=== PATIENT | female | born 1965 | race Caucasian/White ===

== ENCOUNTER 2018-01-24 11:20 | Emergency (ER) | payer MEDICAID, SELFPAY ==
[2018-01-24 11:24] VITALS: BP 168/90; PULSE 109; RESP 18; TEMP 36.7; O2SAT 96
[2018-01-24] MEDS: MORPHine 10 MG/ML VIAL 4 MG IVP (13:41)
[2018-01-24] MEDS: HYDROmorphone 2 MG/ML VIAL 1 MG IVP ×2 (13:55→16:13)
--- NOTE | 2018-01-24 14:31 | W.ED.GENAD ---
Discharge Plan Disposition Patient Disposition: HOME Condition: Improving Discharge Details Chief Complaint: GenMedical Clinical Impression: Pain, rectal, Rectal spasm, External hemorrhoid Primary Care Provider: Bela Borden ED Provider: Kinza Dale Home Meds and New Rx's Prescriptions: New diazepam [Valium] 5 mg tablet 5 mg PO TID PRN (Reason: muscle spasm) Qty: 10 RF: 0 Continue FLEXERIL 5 MG tablet 5 mg PO Q8H PRN Qty: 90 RF: 6 levonorgestrel [Mirena] 1 EACH intrauterine device 1 ea Intrauterine ONCE Qty: 1 RF: 0 onabotulinumtoxinA [Botox] 100 UNIT recon soln 100 unit IJ every 3 months RF: 0 citalopram [Celexa] 20 MG tablet 40 mg PO DAILY RF: 0 VITAMIN D3 1,000 UNIT capsule 1,000 unit PO DAILY RF: 0 estradiol 1 MG tablet 1 mg PO DAILY Qty: 90 RF: 3 diazepam [Valium] 5 mg Tablet 1 tab PO PRN PRNRF: 0 acetaminophen [Tylenol] 325 MG tablet 325 mg PO Q4H PRN PRNRF: 0 No Action ibuprofen [IBU] 600 mg tablet 600 mg PO QID PRN (Reason: pain) Qty: 14 RF: 0 Discharge Instructions Instructions: Hemorrhoids (ED), Rectal Pain (ED) Additional Instructions: Usual nifedipine cream, lidocaine jelly, stool softeners as directed. Take the oxycodone and Valium as needed and directed for pain and muscle spasm, respectively. You should receive a call from Candis Harrison tomorrow regarding follow-up. Return to the emergency department if you develop any worsening or new concerning symptoms such as fever, increased pain, abdominal pain or any other concerns. Discharge Data Discharge Date/Time-TO BE ENTERED AT DEPARTURE: 01/24/18 16:28 Discharge Physician: Kinza Dale Medical Decision Making 52yo F with a history of chronic migraine, hemorrhoidectomy in 2013, and a Botox injection in the rectum for an anal fissure on January 16 at [facility] by Dr. Car who presents for significant rectal pain since last week. She was seen for follow-up in the general surgery clinic 3 days ago by nurse practitioner Candis Harrison who evaluated and noted an external hemorrhoid. Patient states prior to the Botox injection she had a scope which noted several internal hemorrhoids. She denies any rectal bleeding. Patient was given lidocaine cream, nifedipine cream, and Valium per Candis Harrison 3 days ago. Patient denies any relief with this. She denies fever, abdominal pain, rectal bleeding. She had a normal bowel movement today which was soft and denies any rectal bleeding. Blood pressure elevated which appears likely due to pain. There was significant delay in evaluating patient due to high number of patients and high acuity in ED. Patient was given a dose of morphine and Dilaudid prior to my evaluation after confirming no allergies. She was tachycardic on arrival but now has normal heart rate. She is afebrile. Her abdomen soft and nontender. Rectal exam notes a 1 cm nonthrombosed external hemorrhoid which is tender to palpation. She has no associated induration, fluctuance, cellulitis or evidence of abscess to the rectum. Within a few mm of digital rectal evaluation, patient has significant pain so aborted full digital rectal exam due to pain. Will call general surgery at [facility] to discuss any possible side effects after a Botox injection. At this point in time, I suspect patient's pain due to her external hemorrhoid or rectal pain after Botox injection. I do not see any evidence of abscess and she appears nontoxic and in no acute distress other than pain. 1440 --discussed with nurse practitioner Candis Harrison who evaluated patient Sunday in the general surgery clinic. She states she did see the hemorrhoid at that time which again did not appear thrombosed. States that patient can get rectal spasms after Botox injection from a fissure. States she may also developed the external hemorrhoid due to increased pressure from the Botox injection. Recommends continuing the nifedipine cream which helps with blood flow and spasms, continuing the lidocaine jelly, stool softeners and now will add narcotic pain medication. She will call patient at home tomorrow. 1545 --patient was informed of plan and feels good to go home. She is complaining of some return of pain so we will give another dose of Dilaudid. She was informed of plan for discharge and surgery will follow up with her tomorrow. HPI General Mode of arrival: ambulatory. Date/Time Provider Initiated Documentation: 01/24/18 11:46. Limitations to Documentation: no limitations. Information obtained by: patient. HPI Narrative: 52yo F with a history of chronic migraine, hemorrhoidectomy in 2013, and a Botox injection in the rectum for an anal fissure on January 16 at [facility] by Dr. Car who presents for significant rectal pain since last week. She was seen for follow-up in the general surgery clinic 3 days ago by nurse practitioner Candis Harrison who evaluated and noted an external hemorrhoid. Patient states prior to the Botox injection she had a scope which noted several internal hemorrhoids. Patient was given lidocaine cream, nifedipine cream, and Valium per Candis Harrison 3 days ago. Patient denies any relief with this. She denies fever, nausea, vomiting, abdominal pain, rectal bleeding. She had a normal bowel movement today which was soft and denies any rectal bleeding. Past medical history: Chronic migraines, Hemorrhoids, Perimenopausal Surgical history: L shoulder surgery, Carpal tunnel release, Hemorrhoidectomy (2013 - Dr. Jimenez) Social history: Rare ETOH, Former tobacco smoker. Denies drugs Meds: See list Allergies: NKDA PCP: Bela Borden Related Data Home Medications Medication Instructions Recorded Confirmed levonorgestrel [Mirena] 1 ea INTRAUTERINE ONCE #1 implant 05/03/15 01/24/18 citalopram [Celexa] 40 mg PO DAILY tab-cap 10/07/15 01/24/18 onabotulinumtoxinA [Botox] 100 unit IJ every 3 months vial 10/07/15 04/24/17 Vitamin D3 1,000 unit PO DAILY 10/21/15 01/24/18 estradiol 1 mg PO DAILY #90 tab-cap 10/09/16 01/24/18 acetaminophen [Tylenol] 325 mg PO Q4H PRN PRN tab 12/26/16 01/24/18 diazepam [Valium] 1 tab PO PRN PRN 01/24/18 01/24/18 diazepam [Valium] 5 mg PO TID PRN #10 tab 01/24/18 ibuprofen [IBU] 600 mg PO QID PRN #14 tab 01/27/18 Previous Rx's Medication Instructions Recorded acetaminophen [Tylenol] 325 mg PO Q4H PRN PRN tab 12/26/16 diazepam [Valium] 5 mg PO TID PRN #10 tab 01/24/18 ibuprofen [IBU] 600 mg PO QID PRN #14 tab 01/27/18 Allergies Allergy/AdvReac Type Severity Reaction Status Date / Time No Known Allergies Allergy Unverified 01/27/18 14:19 General Stated Complaint: GenMedical SHANIKA: 4 Review of Systems Review of Systems All systems reviewed & are unremarkable except as noted in HPI and below Constitutional Denies chills, Denies fever(s), Denies poor appetite, Denies weakness and Denies weight loss Cardiovascular Denies chest pain, Denies lightheadedness and Denies dyspnea Respiratory Denies dyspnea Gastrointestinal Denies abdominal pain, Denies melena, Denies hematochezia, Denies tenesmus, Denies change in stool character, Denies diarrhea, Denies nausea and Denies vomiting Neurologic Denies weakness PFSH Family History Mother Diabetes Heart disease Father No problems noted. Other Personal history of malignant neoplasm Medical History Bleeding external hemorrhoids Chronic migraine Internal hemorrhoids Premenopausal menorrhagia Social History Smoking/Tobacco Use Status: Former Tobacco Use Surgical History Colonoscopy - IV Sedation L shoulder surgery Exam Const General: cooperative, healthy appearing and acute distress (appears uncomfortable, laying on her R side with ice pack in center of buttocks, pt is crying ) moderate Orientation: alert, awake and oriented x3 HENMT Head: normal to inspection Ears: hearing grossly normal bilaterally General nose exam: external nose normal Face and sinus: normal facial exam Mouth: oral mucosae normal Eyes General: appearance normal, both eyes and all related structures Eyelids: eyelids normal EOM: EOM intact bilaterally Neck Neck: normal visual inspection Lymphatic: no lymphadenopathy noted Chest Chest: normal inspection of the chest Resp Effort & Inspection: normal respiratory effort and able to speak in complete sentences Auscultation: clear to auscultation bilaterally Cardio Rate: regular rate Rhythm: regular rhythm GI Inspection: normal to inspection Palpation: soft, not firm, no guarding, no hepatosplenomegaly, no masses and nontender Auscultation: normal bowel sounds Rectal Exam - female: normal sphincter tone and other (An approximately 1 cm nonthrombosed pink colored hemorrhoid w/o erythema, fluctuance, induration of immediate or surrounding areas. No red streaking, fissures, masses, bleeding or discharge noted. ) Back/Spine/Pelvis Back: no CVA tenderness Skin General skin exam: no rashes or lesions noted Neuro General: alert and awake Cognition: normal cognition Speech: speech normal Gait: normal gait Motor: muscle tone normal throughout Sensory Exam: no sensory deficits noted Extrem General: normal to inspection, full ROM and normal capillary refill Psych Appearance: grossly normal Mental Status: mental status grossly normal Speech and Movement: speech and movement normal Affect: normal affect Thought Process: normal Course Vital Signs Temperature 98.1 F 01/24/18 11:24 Pulse 109 H 01/24/18 11:24 Respiratory Rate 18 01/24/18 11:24 Blood Pressure 168/90 H 01/24/18 11:24 Pulse Oximetry 96 01/24/18 11:24 Temperature 98.1 F 01/24/18 11:24 Temperature Source Temporal Artery Scan 01/24/18 11:24 Pulse 109 H 01/24/18 11:24 Respiratory Rate 18 01/24/18 11:24 Blood Pressure 168/90 H 01/24/18 11:24 Pulse Oximetry 96 01/24/18 11:24 Oxygen Delivery Method Room Air 01/24/18 11:24 Oxygen Flow Rate 0 01/24/18 11:24 Pain Level 10 01/24/18 13:41
[2018-01-24] MEDS: Diazepam 5 MG TAB PO (14:37)
[2018-01-24 15:42] VITALS: BP 153/84; PULSE 74; RESP 17; TEMP 36.9; O2SAT 96
[2018-01-24 16:19] VITALS: BP 153/84; PULSE 74; RESP 17; TEMP 36.9; O2SAT 96
== END 2018-01-24 16:28 | disposition home or self-care (01) ==
PROVIDERS: Emergency Provider Physician Assistant; PCP Nurse Practitioner Family
DX: K59.4 Anal spasm (principal); K64.4 Residual hemorrhoidal skin tags; K68.9 Other disorders of retroperitoneum; T48.295A Adverse effect of other drugs acting on muscles, initial encounter
CPT/HCPCS: 96374; 96375; 96376; 99284; J2270

== ENCOUNTER 2018-01-27 13:49 | Emergency (ER) | payer MEDICAID, SELFPAY ==
[2018-01-27 14:14] VITALS: BP 135/83; PULSE 90; RESP 20; TEMP 36.7; O2SAT 97
[2018-01-27 15:20] VITALS: RESP 18
[2018-01-27] MEDS: Ketorolac 30 MG/ML VIAL IVP (16:12)
[2018-01-27 16:33] VITALS: BP 135/80; PULSE 88; RESP 18; TEMP 36.8; O2SAT 99
--- NOTE | 2018-01-27 16:48 | ED.GENADUL_ITS ---
Discharge Plan Disposition Patient Disposition: HOME Condition: Stable Discharge Details Chief Complaint: GenMedical Clinical Impression: Hemorrhoids, Anal or rectal pain Primary Care Provider: Bela Borden ED Provider: Bo Metzger Home Meds and New Rx's Prescriptions: New ibuprofen [IBU] 600 mg tablet 600 mg PO QID PRN (Reason: pain) Qty: 14 RF: 0 Continue FLEXERIL 5 MG tablet 5 mg PO Q8H PRN Qty: 90 RF: 6 levonorgestrel [Mirena] 1 EACH intrauterine device 1 ea Intrauterine ONCE Qty: 1 RF: 0 onabotulinumtoxinA [Botox] 100 UNIT recon soln 100 unit IJ every 3 months RF: 0 citalopram [Celexa] 20 MG tablet 40 mg PO DAILY RF: 0 VITAMIN D3 1,000 UNIT capsule 1,000 unit PO DAILY RF: 0 estradiol 1 MG tablet 1 mg PO DAILY Qty: 90 RF: 3 diazepam [Valium] 5 mg Tablet 1 tab PO PRN PRNRF: 0 diazepam [Valium] 5 mg tablet 5 mg PO TID PRN (Reason: muscle spasm) Qty: 10 RF: 0 acetaminophen [Tylenol] 325 MG tablet 325 mg PO Q4H PRN PRNRF: 0 Discontinued oxycodone 5 mg tablet 5 mg PO Q6H PRN (Reason: pain) Qty: 14 RF: 0 OxyCODONE [Roxicodone Prepack] 5 MG Tab 5 mg PO Q6H PRNQty: 12 RF: 0 Discharge Instructions Instructions: Hemorrhoids (ED) Additional Instructions: Feel free to return to the emergency department as needed for reassessment otherwise you should call colorectal surgery's office first thing tomorrow morning and speak with Candis for arrangement of close follow-up appoint. Otherwise continue to take your medications as prescribed. Referrals: Bela Borden [Primary Care Provider] - (As needed for reassessment) Discharge Data Discharge Date/Time-TO BE ENTERED AT DEPARTURE: 01/27/18 17:40 Medical Decision Making Patient presenting to the emergency department for chief complaint of rectal pain and discomfort. She states that she has had this problem intermittently for the last 5 years and recently was seen by [facility] colorectal specialist and injected with Botox. She states that the Botox did not help her discomfort and she has had continued amount of pain. Patient denies any fever chills, nausea vomiting diarrhea, normal bowel movements, and denies any other medical complaints. Physical exam does show some external hemorrhoids but severely tender with any palpation so there was none ability to do any internal examination. Given that patient was seen by colorectal surgery I did call [facility] and speak with Dr. Car whom stated that he did not recommend any CT imaging or diagnostics at this time and that patient has continued to complain of this pain for a while that he sees no organic source to her discomfort. He did recommended that she call the office tomorrow morning for follow-up appointment with his nurse practitioner which she is seen in the past and that patient may need referral to pain specialist. He did also recommend that patient be prescribed pain medication to get her through this evening otherwise to use her normally prescribed medications. I agree with this plan of care and informed patient of the recommendations which she stated no further needs questions or concerns and stated agreement with plan of care. Medical Records Medical records reviewed: Yes I reviewed the patient's medical records. HPI General Mode of arrival: ambulatory . Date/Time Provider Initiated Documentation: 01/27/18 14:34 . Limitations to Documentation: no limitations . Information obtained by: patient . History of Present Illness 52 year old F presents to the emergency department with the chief complaint of Rectal pain, described as severe and similar to prior episodes, with intensity rated at 10. Quality is described as aching and sharp, and is localized to the buttocks (Right). Patient reports no radiation. Patient started experiencing this year(s) (5) and it has been intermittent. No relieving factors improve symptom(s), No exacerbating factors reported . Patient notes no other symptoms.. Patient did receive the following treatments prior to arrival, none Related Data Home Medications Medication Instructions Recorded Confirmed levonorgestrel [Mirena] 1 ea INTRAUTERINE ONCE #1 implant 05/03/15 01/24/18 citalopram [Celexa] 40 mg PO DAILY tab-cap 10/07/15 01/24/18 onabotulinumtoxinA [Botox] 100 unit IJ every 3 months vial 10/07/15 04/24/17 Vitamin D3 1,000 unit PO DAILY 10/21/15 01/24/18 estradiol 1 mg PO DAILY #90 tab-cap 10/09/16 01/24/18 acetaminophen [Tylenol] 325 mg PO Q4H PRN PRN tab 12/26/16 01/24/18 diazepam [Valium] 1 tab PO PRN PRN 01/24/18 01/24/18 diazepam [Valium] 5 mg PO TID PRN #10 tab 01/24/18 ibuprofen [IBU] 600 mg PO QID PRN #14 tab 01/27/18 Previous Rx's Medication Instructions Recorded acetaminophen [Tylenol] 325 mg PO Q4H PRN PRN tab 12/26/16 diazepam [Valium] 5 mg PO TID PRN #10 tab 01/24/18 ibuprofen [IBU] 600 mg PO QID PRN #14 tab 01/27/18 Allergies Allergy/AdvReac Type Severity Reaction Status Date / Time No Known Allergies Allergy Unverified 01/27/18 14:19 General Stated Complaint: GenMedical SHANIKA: 3 Review of Systems Constitutional Denies body ache(s), Denies chills and Denies fever(s) Cardiovascular Denies chest pain and Denies dyspnea Respiratory Denies dyspnea Gastrointestinal Reports as per HPI, Denies abdominal pain, Denies nausea and Denies vomiting Genitourinary Denies urinary frequency, Denies difficulty voiding and Denies vaginal discharge Integumentary/Breasts Denies rash Neurologic Denies confusion and Denies sensory deficit Psychiatric Denies confusion PFSH Family History Mother Diabetes Heart disease Father No problems noted. Other Personal history of malignant neoplasm Medical History Bleeding external hemorrhoids Chronic migraine Internal hemorrhoids Premenopausal menorrhagia Social History Smoking/Tobacco Use Status: Former Tobacco Use Surgical History Colonoscopy - IV Sedation L shoulder surgery Exam Const General: cooperative, no acute distress and not ill appearing Orientation: alert, awake and oriented x3 HENMT Mouth: moist mucous membranes Resp Effort & Inspection: normal respiratory effort, able to speak in complete sentences and no respiratory distress Cardio Rate: regular rate Rhythm: regular rhythm GI Inspection: normal to inspection Palpation: soft, no hepatosplenomegaly, not firm, no guarding and no hepatomegaly Rectal Exam - female: normal sphincter tone, No fissure, hemorrhoids (external ) , No laceration, No lesions and tenderness Skin General skin exam: no rashes or lesions noted Neuro General: alert, awake, oriented x3, moves all extremities and no focal motor deficits Sensory Exam: no sensory deficits noted Course Vital Signs Temperature 36.7 C 01/27/18 14:14 Pulse 90 01/27/18 14:14 Respiratory Rate 20 01/27/18 14:14 Blood Pressure 135/83 01/27/18 14:14 Pulse Oximetry 97 01/27/18 14:14 Temperature 36.8 C 01/27/18 16:33 Temperature Source Temporal Artery Scan 01/27/18 16:33 Pulse 88 01/27/18 16:33 Respiratory Rate 18 01/27/18 16:33 Respiratory Effort 01/27/18 15:20 Respiratory Depth Normal 01/27/18 15:20 Respiratory Pattern Normal 01/27/18 15:20 Blood Pressure 135/80 01/27/18 16:33 Blood Pressure Position Sitting 01/27/18 14:14 Pulse Oximetry 99 01/27/18 16:33 Oxygen Delivery Method Room Air 01/27/18 16:33 Oxygen Flow Rate 0 01/27/18 16:33 Pain Level 9 01/27/18 14:14
[2018-01-27 17:06] VITALS: BP 120/89; PULSE 89; RESP 16; TEMP 37.1; O2SAT 96
[2018-01-27] MEDS: HYDROcodone 5/Acetaminophen 325 TAB PO (17:33)
== END 2018-01-27 17:40 | disposition home or self-care (01) ==
PROVIDERS: Emergency Provider Nurse Practitioner Family; PCP Nurse Practitioner Family
DX: K64.4 Residual hemorrhoidal skin tags (principal); K62.89 Other specified diseases of anus and rectum
CPT/HCPCS: 96374; 99284; J1885

== ENCOUNTER 2018-05-07 07:44 | Day surgery (SDC) | payer MEDICAID, SELFPAY ==
[2018-05-07 07:56] VITALS: BP 139/85; PULSE 85; RESP 16; TEMP 37.2; O2SAT 96
[2018-05-07] MEDS: Lactated Ringers 1,000 ML 80 ML IV (08:13)
--- NOTE | 2018-05-07 09:09 | W.COLOREPORT ---
Date of service: 05/07/18 Time of Service: 09:28 Colonoscopy Report Date of procedure: 05/07/18 Pre-op diagnosis general: Family History/Colon Cancer screening Post-op diagnosis procedure note: same Procedure: Colonoscopy Surgeon: Divya Jimenez Anesthesia proc note operative: MAC (Asha Mccabe, BILLIE/ ASA 2) Estimated blood loss (mL): 0 Pathology: none sent Complications: None Disposition: same day Indications: Mrs. Lynn is a pleasant 52 year old female who was seen in the office for a follow-up colonoscopy. She has a family history of colon cancer. Her last colonoscopy was 2012 and was normal. Risks, benefits and complications have been reviewed. Complications include but are not limited to bleeding, pain, perforation, missed small lesion/polyp, sore throat, aspiration and adverse reaction to the medications. Questions were entertained and answered to their satisfaction and they wished to proceed. No guarantees were given or implied. Prep: Miralax/Dulcolax Procedure Start Time: :28 Procedure End Time: :46 Retraction Time: 9 minutes Findings: Normal Colon Procedure Description: After informed consent was obtained the patient was taken to the procedure room and placed in a left decubitous position. Monitors were applied and a time out was done. The patients name, date of , procedure, allergies to medications and metal in their body was reviewed. The patient was then sedated. Once sedated and comfortable a rectal exam was done. External exam was normal. Internal exam revealed a normal sphincter tone and no palpable masses. The scope was then introduced and retro-flexed. No internal hemorrhoids were identified. The scope was then advanced to the cecum without difficulty. The TI and appendiceal orifice were identified. The prep was adequate. The scope was then slowly retracted over 9 minutes back into the rectum. No polyps were identified. The scope was removed and the patient was woken up and taken back to Same day surgery in stable condition. The patient tolerated the procedure well and there were no immediate complications. Follow up: The patient should follow up in 5 years unless they develop changes in bowel habits or other new gastrointestinal complaints.
--- NOTE | 2018-05-07 09:11 | W.PM.DSUDISC ---
Discharge Plan Disposition Patient Disposition: HOME Condition: Good Discharge Details Reason For Visit: Screening Attending Provider: Divya Jimenez Primary Care Provider: Bela Borden Home Meds and New Rx's Prescriptions: Continued cyclobenzaprine 10 mg tablet 10 mg PO HS RF: 0 docusate sodium 100 mg capsule 100 mg PO BID PRNRF: 0 Mirena 1 EACH intrauterine device 1 ea Intrauterine ONCE Qty: 1 RF: 0 Botox 100 UNIT recon soln 100 unit IJ every 3 months RF: 0 citalopram [Celexa] 20 MG tablet 40 mg PO DAILY RF: 0 VITAMIN D3 1,000 UNIT capsule 1,000 unit PO DAILY RF: 0 estradiol 1 MG tablet 1 mg PO DAILY Qty: 90 RF: 3 acetaminophen [Tylenol] 325 MG tablet 325 mg PO Q4H PRN PRNRF: 0 ibuprofen [IBU] 600 mg tablet 600 mg PO QID PRN (Reason: pain) Qty: 14 RF: 0 Discontinued polyethylene glycol 3350 17 gram powder in packet 255 g PO DAILY Qty: 15 RF: 0 bisacodyl [Dulcolax (bisacodyl)] 5 mg tablet,delayed release (DR/EC) 5 mg PO ONCE Qty: 4 RF: 0 Discharge Instructions Instructions: Colonoscopy (DC) Additional Instructions: Findings: Normal Colon Follow up:5 years Please call if you develop: fevers >101.5 Nausea or Vomiting Abdominal pain that is not transient DAY SURGERY UNIT POST COLONOSCOPY INSTRUCTIONS 1. Because there will be medication in your system for the next 24 hours, you may feel a little sleepy. Your coordination will be affected. Therefore: a. Do not drive or operate dangerous equipment for 24 hours. b. Do not drink alcohol beverages for 24 hours (not even beer). c. Plan to go home and rest for the day. 2. Generally there are no restrictions on your activity after a day or so has gone by, but you may feel a bit fatigued for a few days. 3 After you arrive home you may have a light meal and return to a normal diet as you can tolerate it without feeling sick to your stomach. 4. After surgery, you may feel pain or discomfort. This should be only transient, but if it persists please contact your doctor. 5. If there are any questions regarding the findings of your procedure, please feel free to contact your doctor. 6. If you are unable to contact your doctor with a problem, contact the hospital at [phone]. 9. Continue all your regular medications unless directed otherwise. I understand the above instructions and have no questions. Signature of Patient or Responsible Adult Escort Date/Time Name of Responsible Adult Escort Signature of Nurse Date/Time Activity:: Activity as Tolerated Diet:: As Tolerated Discharge Orders Discharge Orders: Discharge Order (Routine); Ordered 05/07/18 Ordered By: Divya Jimenez DS: Diagnosis Discharge Diagnosis (1) S/P colonoscopy: Status: Acute (2) Family history of colon cancer: Status: Acute
[2018-05-07 10:13] VITALS: BP 147/98; PULSE 65; RESP 18; O2SAT 100
[2018-05-07 10:37] VITALS: BP 144/87; PULSE 67; RESP 16; TEMP 36.2; O2SAT 98
== END 2018-05-07 10:54 | disposition home or self-care (01) ==
PROVIDERS: PCP Nurse Practitioner Family; Visit Provider Surgery
PROC: 0DJD8ZZ Inspection of Lower Intestinal Tract, Via Natural or Artificial Opening Endoscopic (ICD-10-PCS; CPT 45378; principal; 2018-05-07 09:15)
DX: Z12.11 Encounter for screening for malignant neoplasm of colon (principal)
CPT/HCPCS: 45378; J2405

== ENCOUNTER 2018-05-24 08:46 | Emergency (ER) | payer MEDICAID, SELFPAY ==
[2018-05-24] VITALS (71 sets, daily range): BP systolic 116–155; BP diastolic 69–92; PULSE 71–96; RESP 12–30; TEMP 37; O2SAT 88–99
--- NOTE | 2018-05-24 08:54 | DI.RAD_ITS ---
SYMPTOMS/DIAGNOSIS: CHEST PAIN, ? ACUTE DISEASE PA AND LATERAL CHEST: Comparison is 02/12/15. The heart size and pulmonary vasculature are within normal limits. No focal consolidating infiltrates, effusions or pneumothoraces are identified. There are degenerative changes in the spine. IMPRESSION: No acute pulmonary process.
[2018-05-24 09:11] LABS: Abs Immature Grans 0.06 k/cumm (0.0-0.09); Absolute Eosinophil Count 0.04 k/cumm (0.0-0.7); Absolute Lymphocyte Count 4.31 k/cumm (1.2-3.4); Absolute Monocyte Count 0.69 k/cumm (0.11-0.7); Absolute Neutrophil Count 6.81 k/cumm (1.2-6.7); Basophils % 0.3; Eosinophils % 0.3; HCT 44.2 % (36.0-46.0); HGB 14.9 g/dL (12.0-15.5); Immature Grans % 0.5; Lymphocytes % 36.1; Mean Corp. HGB Concentration 33.7 g/dL (32.0-36.0); Mean Corpuscular Hemoglobin 30.2 pg (27.0-33.0); Mean Corpuscular Volume 89.7 fL (80-95); Monocytes % 5.8; Platelet Count 269 x1000/uL (130-400); RBC 4.93 m/cumm (4.00-5.20); RBC Distribution Width 12.9 % (11.7-14.6); White Blood Cell Count 11.94 k/cumm (4.4-10.8)
[2018-05-24 09:12] LABS: Absolute Basophil Count 0.04 k/cumm (0.0-0.2)
--- NOTE | 2018-05-24 09:16 | ED.GENADUL_ITS ---
Discharge Plan Disposition Patient Disposition: HOME Condition: Improving Discharge Details Chief Complaint: Chest Pain Clinical Impression: Atypical chest pain, Anxiety, Other social stressor, Chest wall pain Primary Care Provider: Bela Borden ED Provider: Kinza Dale Home Meds and New Rx's Prescriptions: Continued docusate sodium 100 mg capsule 100 mg PO BID PRNRF: 0 Mirena 1 EACH intrauterine device 1 ea Intrauterine ONCE Qty: 1 RF: 0 Botox 100 UNIT recon soln 100 unit IJ every 3 months RF: 0 citalopram [Celexa] 20 MG tablet 40 mg PO DAILY RF: 0 VITAMIN D3 1,000 UNIT capsule 1,000 unit PO DAILY RF: 0 estradiol 1 MG tablet 1 mg PO DAILY Qty: 90 RF: 3 acetaminophen [Tylenol] 325 MG tablet 325 mg PO Q4H PRN PRNRF: 0 ibuprofen [IBU] 600 mg tablet 600 mg PO QID PRN (Reason: pain) Qty: 14 RF: 0 Discharge Instructions Instructions: Anxiety (ED), Chest Wall Pain (ED) Additional Instructions: Call your primary care doctor today to schedule follow-up appointment for reevaluation. Take the Ativan as needed and directed for any further feelings of anxiety or to help with relaxation or sleep. Follow-up with your scheduled stress test on Sunday at 2pm. Return immediately to the emergency department any worsening or new concerning symptoms. Discharge Data Discharge Date/Time-TO BE ENTERED AT DEPARTURE: 05/24/18 14:03 Discharge Physician: Kinza Dale Medical Decision Making 52-year-old female with a history of depression and migraine who presents with substernal sharp and pressure-like chest pain when getting out of bed this morning associated with fatigue and weakness with radiation to her back. Denies SOB or dizziness. Triage note stated that patient collapsed in bathroom. Patient states this did not happen, but rather she stood up out of bed and felt fatigue and weakness and chest pain and laid down on the floor and then climbed back into her bed. She denies any syncopal episode. No complaint of tearing chest pains so history not c/w dissection. No DVT/PE risk factors, no tachycardia/hypoxia, wells score low, and history/exam not c/w PE. Patient appears tearful, anxious and crying throughout exam. She stated she recently lost her job. She also has not been on her Celexa since a colonoscopy 2 weeks ago. She also developed shingles after her colonoscopy 2 weeks ago and has been uncomfortable with right-sided facial neuropathic pain. Her EKG on arrival appears unremarkable. Due to recent stressors and patient presentation of appearing anxious and tearful, anxiety may be a factor. Also her chest is tender is significantly tender to palpation so this may be musculoskeletal as well. Labs ordered on arrival unremarkable. Heart score of 1 which is low risk for cardiac event. Will give a dose of Toradol, Ativan and check a second troponin and reassess. 1330 --second troponin negative. Patient is feeling much better and requesting to go home. She was offered admission but declines. An outpatient stress test was ordered for May 27 at 2 PM. She is requesting a few tabs of Ativan to go. Patient advised to restart her Celexa. Patient instructed to follow-up with primary care doctor and return here at any time if worse. Medical Records Medical records reviewed: Yes I reviewed the patient's medical records. Lab Data Lab results reviewed: Yes I reviewed the patient's lab results. Laboratory Tests Range/Units 05/24/18 05/24/18 05/24/18 09:00 09:00 12:58 WBC (4.4-10.8) k/cumm 11.94 H RBC (4.00-5.20) m/cumm 4.93 Hgb (12.0-15.5) g/dL 14.9 Hct (36.0-46.0) % 44.2 MCV (80-95) fL 89.7 MCH (27.0-33.0) pg 30.2 MCHC (32.0-36.0) g/dL 33.7 RDW (11.7-14.6) % 12.9 Plt Count (130-400) x1000/uL 269 MPV (8.0-11.0) fL 9.0 Immature Gran % 0.5 Neutrophils % 57.0 Lymphocytes % 36.1 Monocytes % 5.8 Eosinophils % 0.3 Basophils % 0.3 Absolute Neutrophils (1.2-6.7) k/cumm 6.81 H Absolute Lymphocytes (1.2-3.4) k/cumm 4.31 H Absolute Monocytes (0.11-0.7) k/cumm 0.69 Absolute Eosinophils (0.0-0.7) k/cumm 0.04 Absolute Basophils (0.0-0.2) k/cumm 0.04 Sodium (136-145) mmol/L 142 Potassium (3.5-5.1) mmol/L 4.2 Chloride (98-107) mmol/L 104 Carbon Dioxide (21.0-32.0) mmol/L 24.9 Anion Gap (3-11) mmol/L 13.1 H BUN (7-18) mg/dL 17 Creatinine (0.55-1.02) mg/dL 0.77 Estimated GFR/1.73 m2 (mL/min/1.73m2) >= 60.00 Glucose (70-100) mg/dL 105 H Calcium (8.5-10.1) mg/dL 9.3 Magnesium (1.8-2.4) mg/dL 2.0 Total Bilirubin (0.2-1.0) mg/dL 0.3 AST (15-37) U/L 15 ALT (12-78) U/L 30 Alkaline Phosphatase (46-116) U/L 85 Troponin I (0.00-0.06) ng/mL < 0.02 < 0.02 Total Protein (6.4-8.2) g/dL 7.3 Albumin (3.4-5.0) g/dL 3.6 ECG Data Attestation: I personally reviewed and interpreted this ECG (s) as follows: Interpretation: 0853 -- 96, sinus, no acute ST elevation or depression, T wave inversion in lead III, QTc 440, QRS 82. HPI General Mode of arrival: ambulatory . Date/Time Provider Initiated Documentation: 05/24/18 08:47 . Limitations to Documentation: no limitations . Information obtained by: patient . HPI Narrative: Pt is a 52yo F with a history of depression, migraines who presents with chest pain since this morning. Patient states she stood up to get out of bed and felt generally weak and fatigued and developed substernal sharp and pressure-like chest pain. States it radiated straight through to her back. She denies any tearing chest pain. States the pain currently is 10/10. She admits to some nausea and vomiting 4 times since then but denies any shortness of breath or dizziness. Patient states she had been feeling generally weak for the past month since being diagnosed and treated for shingles with antivirals, steroids and tramadol. She states she has had persistent right facial pain at the site of her shingles but states the rash is improved. She denied any relief with tramadol before. Dorina darby states she was diagnosed with shingles immediately after a colonoscopy on May 07. She states she had stopped all of her medication prior to colonoscopy and is not taking them since then due to her feelings of general fatigue and not feeling well. She denies any fever, cough, recent surgery, recent travel or leg pain or swelling. Related Data Home Medications Medication Instructions Recorded Confirmed Mirena 1 ea INTRAUTERINE ONCE #1 implant 05/03/15 05/24/18 Botox 100 unit IJ every 3 months vial 10/07/15 05/24/18 citalopram [Celexa] 40 mg PO DAILY tab-cap 10/07/15 05/24/18 Vitamin D3 1,000 unit PO DAILY 10/21/15 05/24/18 estradiol 1 mg PO DAILY #90 tab-cap 10/09/16 05/24/18 acetaminophen [Tylenol] 325 mg PO Q4H PRN PRN tab 12/26/16 05/24/18 ibuprofen [IBU] 600 mg PO QID PRN #14 tab 01/27/18 05/24/18 docusate sodium 100 mg capsule 100 mg PO BID PRN 04/15/18 05/24/18 Previous Rx's Medication Instructions Recorded acetaminophen [Tylenol] 325 mg PO Q4H PRN PRN tab 12/26/16 ibuprofen [IBU] 600 mg PO QID PRN #14 tab 01/27/18 Allergies Allergy/AdvReac Type Severity Reaction Status Date / Time No Known Allergies Allergy Verified 05/24/18 09:23 General Stated Complaint: Chest Pain SHANIKA: 2 Review of Systems Review of Systems All systems reviewed & are unremarkable except as noted in HPI and below Constitutional Reports as per HPI, Denies chills and Denies fever(s) Eyes Denies blurry vision ENT Denies dizziness, Denies sore throat and Denies throat swelling Cardiovascular Reports chest pain and Denies dyspnea Respiratory Denies dyspnea Gastrointestinal Denies abdominal pain, Denies diarrhea and Reports vomiting Genitourinary Denies hematuria and Denies dysuria Musculoskeletal Denies back pain and Denies numbness Integumentary/Breasts Denies lesions and Denies rash Neurologic Denies dizziness and Denies numbness Allergic/Immunologic Denies throat swelling [facility] Medical History Family history of colon cancer (Acute) Chronic anal fissure (Acute) Bleeding external hemorrhoids Chronic migraine Internal hemorrhoids Premenopausal menorrhagia Surgical History S/P colonoscopy (Acute ~05/07/18) S/P Botox injection (Acute) Colonoscopy - IV Sedation (~2012) L shoulder surgery Family History Mother Diabetes Heart disease Colon polyps Other Personal history of malignant neoplasm Sister Colon polyps Social History Smoking/Tobacco Use Status: Former Tobacco Use alcohol intake: current alcohol intake frequency: holidays/special occasions only substance use type: marijuana Exam Const General: cooperative, healthy appearing and other (crying, tearful and anxious throughout exam) Orientation: alert, awake and oriented x3 HENMT Head: normal to inspection Face and sinus: normal facial exam Eyes General: appearance normal, both eyes and all related structures EOM: EOM intact bilaterally Neck Neck: normal visual inspection and No submandibular swelling Lymphatic: no lymphadenopathy noted Chest Chest: normal inspection of the chest and tenderness Chest/axillae images: 1. significant tenderness to palpation of substernal chest. No evidence of rash or injury Resp Effort & Inspection: normal respiratory effort and able to speak in complete sentences Auscultation: clear to auscultation bilaterally Cardio Rate: regular rate Rhythm: regular rhythm GI Inspection: normal to inspection Palpation: soft, not firm, not rigid and nontender Auscultation: normal bowel sounds Skin General skin exam: no rashes or lesions noted Neuro General: alert, awake and oriented x3 Cognition: normal cognition Speech: speech normal Motor: muscle tone normal throughout Sensory Exam: no sensory deficits noted Extrem General: normal to inspection, full ROM and no edema Psych Appearance: grossly normal Mental Status: mental status grossly normal Speech and Movement: speech and movement normal Affect: normal affect Course Vital Signs Temperature 98.6 F 05/24/18 08:52 Pulse 91 H 05/24/18 08:52 Respiratory Rate 22 05/24/18 08:52 Blood Pressure 155/92 H 05/24/18 08:52 Pulse Oximetry 98 05/24/18 08:52 Temperature 98.6 F 05/24/18 08:52 Temperature Source Temporal Artery Scan 05/24/18 08:52 Pulse 91 H 05/24/18 08:52 Respiratory Rate 22 05/24/18 08:52 Respiratory Effort Non-Labored 05/24/18 08:54 Blood Pressure 155/92 H 05/24/18 08:52 Blood Pressure Position Sitting 05/24/18 08:52 Pulse Oximetry 98 05/24/18 08:52 Oxygen Delivery Method Room Air 05/24/18 08:52 Oxygen Flow Rate 0 05/24/18 08:52 Pain Level 10 05/24/18 08:52 Comment 05/24/18 08:52 Lab/Test Results Lab/Test Results: Laboratory Tests Range/Units 05/24/18 09:00 WBC (4.4-10.8) k/cumm 11.94 H RBC (4.00-5.20) m/cumm 4.93 Hgb (12.0-15.5) g/dL 14.9 Hct (36.0-46.0) % 44.2 MCV (80-95) fL 89.7 MCH (27.0-33.0) pg 30.2 MCHC (32.0-36.0) g/dL 33.7 RDW (11.7-14.6) % 12.9 Plt Count (130-400) x1000/uL 269 MPV (8.0-11.0) fL 9.0 Immature Gran % 0.5 Neutrophils % 57.0 Lymphocytes % 36.1 Monocytes % 5.8 Eosinophils % 0.3 Basophils % 0.3 Absolute Neutrophils (1.2-6.7) k/cumm 6.81 H Absolute Lymphocytes (1.2-3.4) k/cumm 4.31 H Absolute Monocytes (0.11-0.7) k/cumm 0.69 Absolute Eosinophils (0.0-0.7) k/cumm 0.04 Absolute Basophils (0.0-0.2) k/cumm 0.04
[2018-05-24 09:26] LABS: ALT 30 U/L (12-78); AST 15 U/L (15-37); Albumin 3.6 g/dL (3.4-5.0); Alkaline Phosphatase 85 U/L (46-116); Anion Gap 13.1 mmol/L (3-11); BUN 17 mg/dL (7-18); Bilirubin, Total 0.3 mg/dL (0.2-1.0); CO2 24.9 mmol/L (21.0-32.0); CREATININE 0.77 mg/dL (0.55-1.02); Calcium 9.3 mg/dL (8.5-10.1); Chloride 104 mmol/L (98-107); Glucose 105 mg/dL (70-100); Potassium 4.2 mmol/L (3.5-5.1); Sodium 142 mmol/L (136-145); Total Protein 7.3 g/dL (6.4-8.2); Troponin I < 0.02 ng/mL (0.00-0.06)
[2018-05-24] MEDS: Ketorolac 30 MG/ML VIAL IVP (11:23)
[2018-05-24] MEDS: LORazepam 2 MG/ML VIAL 0.5 MG IVP (11:31)
--- NOTE | 2018-05-24 11:33 | NUR.NOTE ---
patient medicated per MD order, POC 4 hour troponin Nursing Note:
[2018-05-24 13:16] LABS: Troponin I < 0.02 ng/mL (0.00-0.06)
--- NOTE | 2018-05-24 14:02 | NUR.NOTE ---
IV dc'd. patient to be discharged home Nursing Note:
[2018-05-24] MEDS: LORazepam 0.5 MG TAB PO (14:10)
== END 2018-05-24 14:03 | disposition home or self-care (01) ==
PROVIDERS: Emergency Provider Physician Assistant; PCP Nurse Practitioner Family
DX: R07.89 Other chest pain (principal); F41.9 Anxiety disorder, unspecified; T43.226A Underdosing of selective serotonin reuptake inhibitors, initial encounter; Z91.14 Patient's other noncompliance with medication regimen; Z56.89 Other problems related to employment; R11.2 Nausea with vomiting, unspecified; B02.9 Zoster without complications
CPT/HCPCS: 36415; 80053; 93005; 96374; 96375; 99285; 71046; 83735; 84484; 85025; 93010; J1885; J2060

== ENCOUNTER 2018-05-27 00:08 | Outpatient (CLI) | payer MEDICAID, SELFPAY ==
--- NOTE | 2018-05-27 14:00 | ETT_ITS ---
*[facility]* *[facility]* [address] [place] [address] Stress Electrocardiography Shaji protocol Date of study: 05/27/2018 *PATIENT PRESENTATION* Height: 157.5cm (62in) Blood Pressure: Weight: 81.8kg (180lb) BSA: 1.93m^2 Referring physician: Kinza Dale Ordering physician: Kinza Dale Impressions: Normal study after maximal exercise. Summary: 1. Stress ECG conclusions: The stress ECG is negative. Martinez treadmill score: 5. This score predicts a low risk of cardiac events. 2. Stress: The target heart rate was achieved. The heart rate response to stress is normal. There is a normal resting blood pressure with an appropriate response to stress. The patient experienced no chest pain during stress. Exercise capacity is normal for age. Indication: R07.9. History: REASON FOR TESTING: PATIENT PRESENTED TO THE ED ON 05/24/18 FOR SHARP SUBSTERNAL CHEST PAIN/PRESSURE WITH RADIATION TO HER BACK ASSOCIATED WITH FATIGUE, WEAKNESS, NAUSEA AND VOMITING. TROPONINS IN ED WERE NEGATIVE. DENIES CHEST PAIN/PRESSURE UPON ARRIVAL FOR STRESS TEST TODAY ALTHOUGH SHE REPORTS MIDSTERNAL CHEST WALL SORENESS. SIGNIFICANT PAST MEDICAL HISTORY: ANXIETY AND DEPRESSION. SMOKING STATUS: QUIT 1990. 10 YEAR PPD HISTORY. EXERCISE ROUTINE: NO DAILY EXERCISE ROUTINE. Risk factors: Obesity. Dyslipidemia. Cholesterol: 222mg/dl. HDL: 56mg/dl. LDL: 152mg/dl. Triglycerides: 120mg/dl. ALLERGIES: NO KNOWN ALLERGIES. MEDICATIONS: ESTRADIOL 1 MG DAILY, CELEXA 40 MG DAILY, TYLENOL 325 MG PRN, IBUPROFEN 600 MG PRN, COLACE 100 MG PRN, VITAMIN D 1000 UNITS DAILY, BOTOX 100 UNIT IJ EVERY 3 MONTHS, MIRENA INTAUTERINE IMPLANT ONCE. Protocol: Shaji protocol. Baseline ECG: SINUS RHYTHM. HEART RATE 70 BPM. INVERTED T WAVES IN LEAD III AND V1. Stress protocol: + +---+ +---+ !Stage !HR !BP (mmHg) !Sat! + +---+ +---+ !Baseline supine !70 !120/80 (93) !97%! + +---+ +---+ !Baseline standing !75 !128/80 (96) !---! + +---+ +---+ !Stage II; 2.5mph, 12degrees; 3 min !148!160/78 (105)!---! + +---+ +---+ !Stage III; 3.4mph, 14degrees; 3 min!156!180/88 (119)!---! + +---+ +---+ !Recovery; 1 min !128!190/70 (110)!---! + +---+ +---+ !Recovery; 3 min !83 !130/78 (95) !---! + +---+ +---+ * Stress results: STRESS TEST ENDED IN 5 MINUTES 17 SECONDS DUE TO FATIGUE. NORMAL HEART RATE AND BLOOD PRESSURE RESPONSE TO EXERCISE STRESS TEST. MAX HEART RATE: 158 BPM ACHEIVED 93 % OF TARGET HEART RATE. MET'S: 7.05. RARE PAC'S. OCCASIONAL PVC'S DURING PEAK EXERCISE AND RECOVERY. INVERTED T WAVES IN LEAD III AND V1 AT BASELINE. INVERTED T WAVE IN V1 FLATTEN OUT AT 4 MINUTES 53 SECONDS EXERCISE, THEN RETURN TO BASELINE INVERSIONS AT 4 MINUTES RECOVERY. NO ANGINA. NO SIGNIFICANT ST SEGMENT CHANGES. MILDLY DIMINISHED FUNCTIONAL CAPACITY. Maximal heart rate during stress was 158bpm (93% of maximal predicted heart rate). The maximal predicted heart rate was 169bpm. The target heart rate was achieved. The heart rate response to stress is normal. There is a normal resting blood pressure with an appropriate response to stress. The rate-pressure product for the peak heart rate and blood pressure was 16598jt Hg/min. The patient experienced no chest pain during stress. Exercise capacity is normal for age. Stress ECG: The stress ECG is negative. Martinez treadmill score: 5. This score predicts a low risk of cardiac events. Study data: Michele Saldana MD supervised and was readily available during the procedure. This study was interpreted by [facility]. Study status: Routine. Consent: The risks, benefits, and alternatives to the procedure were explained to the patient and informed consent was obtained. Procedure: Initial setup. A baseline ECG was recorded. Surface ECG leads and manual cuff blood pressure measurements were monitored. Heart sounds: Normal. Lung sounds: Normal. Treadmill exercise testing was performed using the Shaji protocol. Study completion: The patient tolerated the procedure well and was discharged from the lab. Discharge: The patient left the laboratory in stable condition. Birthdate: Patient birthdate: 1965. Sex: Gender: female. Study date: Study date: 05/27/2018. Study time: 02:00 PM. Electronically signed by Michele Saldana MD 05/27/2018 16:19
== END 2018-05-27 00:28 ==
PROVIDERS: PCP Nurse Practitioner Family; Visit Provider Physician Assistant
DX: R07.9 Chest pain, unspecified (principal); R53.83 Other fatigue; E78.5 Hyperlipidemia, unspecified; F41.8 Other specified anxiety disorders; Z87.891 Personal history of nicotine dependence
CPT/HCPCS: 93017

== ENCOUNTER 2018-07-23 15:39 | Outpatient (CLI) | payer MEDICAID, SELFPAY ==
--- NOTE | 2018-07-23 11:40 | DI.RAD_ITS ---
SYMPTOMS/DIAGNOSIS: CHRONIC PAIN GRAHAM THUMBS LEFT THUMB: Three views were obtained. There are mild degenerative changes of the IP joints of the hand. There is marked hypertrophic degenerative change of the greater multangular first metacarpal joint with marked narrowing of the cartilaginous joint space at this site. Otherwise the carpus appears essentially intact. CONCLUSION: Marked hypertrophic degenerative changes at the greater multangular first metacarpal joint. RIGHT THUMB: Three views were obtained. There are mild degenerative changes of the IP joints of the hand. There are mild degenerative changes of the IP joint of the thumb and the first MCP joint. There are moderate hypertrophic degenerative changes with some loss of cartilaginous joint space at the greater multangular first metacarpal joint. Otherwise the joints of the carpus appear intact. CONCLUSION: DJD most prominent involving greater multangular first metacarpal joint.
== END 2018-07-23 15:59 ==
PROVIDERS: PCP Nurse Practitioner Family; Visit Provider General Practice
DX: M79.641 Pain in right hand (principal); M79.642 Pain in left hand; M18.11 Unilateral primary osteoarthritis of first carpometacarpal joint, right hand; M18.12 Unilateral primary osteoarthritis of first carpometacarpal joint, left hand
CPT/HCPCS: 73140

== ENCOUNTER 2018-09-06 06:10 | Day surgery (SDC) | payer MEDICAID, SELFPAY ==
[2018-09-06] VITALS (8 sets, daily range): BP systolic 137–179; BP diastolic 90–99; PULSE 68–80; RESP 11–16; TEMP 36.4–36.8; O2SAT 94–98
[2018-09-06] MEDS: Lactated Ringers 1,000 ML 80 ML IV (07:03)
--- NOTE | 2018-09-06 07:15 | DI.RAD_ITS ---
SYMPTOM/DIAGNOSIS: RIGHT THUMB PAIN C-ARM FLUOROSCOPY: 09/06 Fluoroscopy Time: 7 SEC Fluoroscopy was utilized by Dr. Pop. Please see Dr. Pop's procedure note. Hard copy shows needle overlying the distal carpal row at the level of the greater or lesser multangular
[2018-09-06] MEDS: ceFAZolin 2 GM/50 ML BAG IVPB (07:37)
[2018-09-06] MEDS: Bupivacaine 0.5% Pres-Free 30 ML VIAL (09:22)
--- NOTE | 2018-09-06 09:41 | W.PM.DSUDISC ---
Discharge Plan Disposition Patient Disposition: HOME Condition: Improving Discharge Details Attending Provider: Bobby Pop Primary Care Provider: Zoltan Mireles Home Meds and New Rx's Prescriptions: New hydrocodone-acetaminophen 5-325 mg Tablet 1 - 2 tab PO Q4H PRN PRN (Reason: Pain) Qty: 18 RF: 0 No Action docusate sodium 100 mg capsule 100 mg PO BID PRNRF: 0 Mirena 1 EACH intrauterine device 1 ea Intrauterine ONCE Qty: 1 RF: 0 Botox 100 UNIT recon soln 100 unit IJ every 3 months RF: 0 citalopram [Celexa] 20 MG tablet 40 mg PO DAILY RF: 0 VITAMIN D3 1,000 UNIT capsule 1,000 unit PO DAILY RF: 0 estradiol 1 MG tablet 1 mg PO DAILY Qty: 90 RF: 3 acetaminophen [Tylenol] 325 MG tablet 325 mg PO Q4H PRN PRNRF: 0 ibuprofen [IBU] 600 mg tablet 600 mg PO QID PRN (Reason: pain) Qty: 14 RF: 0 Discharge Instructions Additional Instructions: Keep your right hand elevated above heart level as much as possible for the next 48-72 hours. You may use your fingers as much as comfort allows, but avoid anything other than gentle motion of your right thumb. Use ice over the cast at the base of the thumb for additional pain and swelling. It will take about 1 hour before the cold of the ice can penetrate the cast. Your cast has been split. You may loosen the ewelina bandage and spread or wedge the cast open if it feels too tight. For showering tomorrow, use a plastic bag with a rubber band about the upper arm to keep the cast dry.Take tylenol, advil or aleve for milder pain. Tylenol may be taken at the same time as advil or at the same time as aleve as they are metabolized differently and are not cross toxic. Take norco (hydrocodone 5/325mg) 1-2 every 4-6 hours for more serious pain. [facility] regulations limit the amount of norco that can be prescribed to 18 tablets. Take your usual medications as before. Follow-up with Dr. Pop in 2 weeks for cast removal, stitch removal and application of a new cast. Equipment/Supplies: Cast Remove Dressings/Wound Care:: Do Not Remove Shower/Bathe:: 24 hours and Cover Diet:: As Tolerated Discharge Orders Discharge Orders: Discharge Order (Routine); Ordered 09/06/18 Ordered By: Bobby Pop DS: Diagnosis Discharge Diagnosis (1) Arthritis of hand, degenerative: Status: Acute (2) Arthritis of hand: Status: Acute
[2018-09-06] MEDS: fentaNYL 100 MCG/2 ML VIAL IVP ×2 (09:51→10:03)
[2018-09-06] MEDS: Normal Saline Flush 10 ML SYR IV (10:15)
[2018-09-06] MEDS: HYDROmorphone 2 MG/ML VIAL IVP (10:15)
[2018-09-06] MEDS: HYDROcodone 5/Acetaminophen 325 TAB PO (10:48)
--- NOTE | 2018-09-06 11:18 | ROE_ITS ---
DATE OF PROCEDURE: September 06, 2018 PREOPERATIVE DIAGNOSIS: Trapeziometacarpal arthritis right hand. POSTOPERATIVE DIAGNOSIS: Same. PROCEDURE: Interpositional arthroplasty trapeziometacarpal joint using one-half of the flexor carpi radialis. SURGEON: Bobby Pop M.D. NETWORK ADMIN: Krystina Heart ANESTHETIC: General via LMA by Sanju Powell CRNA PREP: ChloraPrep. INDICATIONS: This patient presented to my office with bilateral thumb pain. She had radiographs kavitha wing end-stage osteoarthritis of both hands with a little more serious radiographic involvement on th e left side than on the right. Initially she wanted to proceed with left trapeziometacarpal arthropl asty, but changed her mind and wanted to have the right side done first. She was also having some mi ld metacarpophalangeal arthritis of the thumb and there was very slight narrowing on the radial borde r of the metacarpophalangeal joint inner space, but I felt that performing the arthroplasty at the tr apeziometacarpal joint would take some stress off of that joint. I did not see any reason to include a fusion of the MCP joint at the time of this procedure, as the arthritis was not severe enough. I discussed the planned operative procedure, including the use of a radial half of the flexor carpi rad ialis tendon rolled up into a cinnamon roll type of configuration to place between the base of the th umb metacarpal and the scaphoid. I discussed the risks, including infection, possible injury to the superficial radial nerve and failure to relieve all of her symptoms and she understood and wished to proceed. She also understood that she would need to be in a cast for four weeks, followed by a wrist splint for two additional weeks. The patient was met in the Day Surgery holding area. I reviewed t he planned procedure. I marked her right wrist. PROCEDURE DESCRIPTION: The patient was taken to the operating suite where she underwent general anes thesia via LMA. Two grams of Ancef were given as a prophylactic antibiotic. A pneumatic tourniquet was applied to the proximal brachium. A time-out was instituted. The limb was prepped and draped, w ith the skin being prepped with ChloraPrep. The limb was exsanguinated for about two minutes and the n the tourniquet inflated to 320 mmHg. A hockey stick type incision was made beginning at the dorsal radial aspect of the second metacarpal, curving across the trapeziometacarpal joint and following the path of the flexor carpi radialis up t he forearm. The skin and subcutaneous tissues were incised and hemostasis was performed by electroca utery. The first portion of the procedure consisted of identifying the terminal branches of the superficial radial nerve, which were protected. The first dorsal extensor compartment was identified and incised . There were no accessory slips to the abductor pollicis longus or extensor pollicis brevis. The nc ni C-arm was brought into position. An 18 gauge needle was then placed into what was felt to be the trapezium. This was confirmed radiographically. I then made a dorsoradial incision over the capsule of the trapeziometacarpal joint. Sutures were placed on either side of this incision so as to allow for closure. The joint was identified with a mild amount of synovial fluid. I identified the dista l pole of the scaphoid and also identified the trapezium and resected it in a piecemeal fashion using Hayes osteotomes and a rongeur. The thumb metacarpal base showed no significant osteoarthritis. Th e triquetrum was also noted and did not show any arthritic changes. The scaphoid distal pole also montero d good articular cartilage. After removing the remnants of the trapezium, I then approached harvesting the radial portion of the flexor carpi radialis. This was done up to the junction of the musculotendinous portion of the flexo r carpi radialis. The radial aspect was then cut proximally and then longitudinally, leaving it coby ched distally. This provided a nice tendon for interposition. I then created a path for the tendon to be passed into the trapeziometacarpal joint, maintaining the insertion of the radial aspect of the flexor carpi radialis to the volar surface of the index metacarpal. Once the tendon was passed into the joint, then it was secured in a cinnamon roll type of configuration with sutures of #2-0 Vicryl. This was then placed in the trapeziometacarpal joint. Tension was adjusted on its location and the n I passed the Vicryl sutures that were fixating the cinnamon roll configuration with a Cortez needle up through the dorsoradial skin of the hand. This was tied over a dental roll on top of a piece of X eroform gauze. This held the transposed tendon in its appropriate position. After verifying this, t he suture was tied and cut. I then proceeded to repair the capsule over the trapeziometacarpal joint with sutures of #2-0 Vicryl. The tourniquet was then deflated. Hemostasis was under control. There was excellent return of cir culation to the hand. There was no evidence of any arterial injury, including the radial artery. T he subcutaneous tissues were closed with #4-0 Vicryl and the skin was closed with #5-0 Ethilon in an alternating fashion of simple sutures and [id number] retention sutures. Marcaine 0.5% was devan carlos in the subcutaneous tissues to allow for postoperative analgesia. The patient was then placed in a short-arm thumb spica case with appropriate molding of the cast to maintain the trapeziometacarpal joint in normal alignment. The cast was univalved and covered with a 3-inch Tariq bandage. The patient was then taken to the recovery room in satisfactory condition, tolerating the procedure w ell with no apparent complications.
== END 2018-09-06 12:30 | disposition home or self-care (01) ==
PROVIDERS: PCP General Practice; Visit Provider Orthopaedic Surgery
PROC: (CPT 25447; principal; 2018-09-06 07:30)
DX: M18.11 Unilateral primary osteoarthritis of first carpometacarpal joint, right hand (principal); M79.644 Pain in right finger(s)
CPT/HCPCS: 25447; 26480; 73120; J0690; J1885; J2405; J3010

== ENCOUNTER 2018-09-20 20:20 | Emergency (ER) | payer MEDICAID, SELFPAY ==
--- NOTE | 2018-09-20 20:29 | NUR.NOTE ---
pt had surgery on her right wist with radha two weeks ago. today radha applied a new cast to right wrist pt presents in tears with anxiety that cast is to tight. capillary refill equal in both hands. puls ox readable with goo pleth bilaterally pt complains of 5/10 pain in right wrist. after talking with nurse much of visa ble anxiety has been relieved
[2018-09-20 20:32] VITALS: BP 147/85; PULSE 91; RESP 22; TEMP 36.9; O2SAT 96
--- NOTE | 2018-09-20 20:59 | W.ED.GENAD ---
Discharge Plan Disposition Patient Disposition: HOME Condition: Stable Discharge Details Chief Complaint: GenMedical Clinical Impression: Epicondylitis, lateral, right Primary Care Provider: Zoltan Mireles ED Provider: Bo Metzger Home Meds and New Rx's Prescriptions: Continued docusate sodium 100 mg capsule 100 mg PO BID PRNRF: 0 Mirena 1 EACH intrauterine device 1 ea Intrauterine ONCE Qty: 1 RF: 0 Botox 100 UNIT recon soln 100 unit IJ every 3 months RF: 0 citalopram [Celexa] 20 MG tablet 40 mg PO DAILY RF: 0 VITAMIN D3 1,000 UNIT capsule 1,000 unit PO DAILY RF: 0 estradiol 1 MG tablet 1 mg PO DAILY Qty: 90 RF: 3 hydrocodone-acetaminophen 5-325 mg Tablet 1 - 2 tab PO Q4H PRN PRN (Reason: Pain) Qty: 18 RF: 0 acetaminophen [Tylenol] 325 MG tablet 325 mg PO Q4H PRN PRNRF: 0 ibuprofen [IBU] 600 mg tablet 600 mg PO QID PRN (Reason: pain) Qty: 14 RF: 0 Discharge Instructions Instructions: Tennis Elbow (ED) Additional Instructions: With the forearm Airsoft splint as needed for discomfort and continue your normal prescribed medications. Feel free to return to the emergency department for any new or worsening symptoms, any severe color changes to your hand or loss of sensation, or significant changes in swelling. Otherwise follow-up with Dr. Pop as needed or prearranged Referrals: Bobby Pop MD [ [facility] STAFF PHYSICIAN] - Discharge Data Discharge Date/Time-TO BE ENTERED AT DEPARTURE: 09/20/18 21:36 Medical Decision Making Patient presenting the emergency department for chief complaint of right arm pain. Patient states that she had casting placed in orthopedic office today and shortly afterwards noticed sensation of cast being extremely tight. She denies any swelling to the fingers, change in sensation to the fingers numbness or tingling. Physical exam shows normal cap refill of the fingers, warm, normal sensation. Was able to insert at least one finger into the upper portion of the cast which did not feel tight, no evidence of compartment syndrome or significant swelling. Patient did have lateral epicondyle tenderness and with compression of the forearm patient's symptoms went away. I feel that given patient wearing splinting she has developed some epicondylitis. Patient was given an Aircast pillow which relieved her symptoms. Patient was instructed on activity modifications. Patient to follow-up with orthopedist as previously scheduled or as needed. After discussion of diagnosis and plan of care patient has no further needs, questions, or concerns and states clear understanding to return to the emergency department for any worsening symptoms. HPI General Date/Time Provider Initiated Documentation: 09/20/18 20:35. Limitations to Documentation: no limitations. Information obtained by: patient. History of Present Illness 52 year old F presents to the emergency department with the chief complaint of R wrist pain post-casting, described as moderate, with intensity rated at 5. Quality is described as other (like it is being stranged), and is localized to the right and upper extremity. Patient started experiencing this hour(s) (10 hours) and it has been constant. No relieving factors improve symptom(s),; worse with cold therapy No exacerbating factors reported . Patient notes no other symptoms.. Patient did receive the following treatments prior to arrival, NSAID and cold therapy (no relief with ice or elevation) HPI Narrative: Pt had surgery 2 weeks ago on R wrist, has been progressing well in recovery. Had cast changed today and stitches removed, new cast applied at approx 11 am. Has been c/o pain to forearm since then. Related Data Home Medications Medication Instructions Recorded Confirmed Mirena 1 ea INTRAUTERINE ONCE #1 implant 05/03/15 09/20/18 Botox 100 unit IJ every 3 months vial 10/07/15 09/20/18 citalopram [Celexa] 40 mg PO DAILY tab-cap 10/07/15 09/20/18 Vitamin D3 1,000 unit PO DAILY 10/21/15 09/20/18 estradiol 1 mg PO DAILY #90 tab-cap 10/09/16 09/20/18 acetaminophen [Tylenol] 325 mg PO Q4H PRN PRN tab 12/26/16 09/20/18 ibuprofen [IBU] 600 mg PO QID PRN #14 tab 01/27/18 09/20/18 docusate sodium 100 mg capsule 100 mg PO BID PRN 04/15/18 09/20/18 hydrocodone-acetaminophen 1 - 2 tab PO Q4H PRN PRN #18 tab 09/06/18 09/20/18 Previous Rx's Medication Instructions Recorded acetaminophen [Tylenol] 325 mg PO Q4H PRN PRN tab 12/26/16 ibuprofen [IBU] 600 mg PO QID PRN #14 tab 01/27/18 hydrocodone-acetaminophen 1 - 2 tab PO Q4H PRN PRN #18 tab 09/06/18 Allergies Allergy/AdvReac Type Severity Reaction Status Date / Time No Known Allergies Allergy Verified 09/20/18 20:34 General Stated Complaint: GenMedical SHANIKA: 4 Review of Systems Review of Systems All systems reviewed & are unremarkable except as noted in HPI and below Musculoskeletal Comments: Pain to R forearm. No numbness/tingling to fingers. Integumentary/Breasts Denies change in pigmentation, Denies erythema, Denies rash and Denies skin swelling PFSH Medical History Family history of colon cancer (Acute) Chronic anal fissure (Acute) History of hemorrhoids (Acute) Bleeding external hemorrhoids Chronic migraine Internal hemorrhoids Premenopausal menorrhagia Surgical History S/P colonoscopy (Acute ~05/07/18) History of bilateral carpal tunnel release (Acute) S/P Botox injection (Acute) History of hemorrhoidectomy (Chronic) Colonoscopy - IV Sedation (~2012) L shoulder surgery Family History Mother Diabetes Heart disease Colon polyps Other Personal history of malignant neoplasm Sister Colon polyps Social History Smoking/Tobacco Use Status: Former Tobacco Use Quit Date: 04/30/90 Alcohol Intake: current Alcohol Intake frequency: holidays/special occasions only Alcohol type: beer and wine Drug use: Daily Substance use type: marijuana Details: marijuana last night around 1800 Do you feel safe at home: Yes Do you feel safe in your relationship?: Yes Exam Const General: cooperative and no acute distress Resp Effort & Inspection: normal respiratory effort Auscultation: clear to auscultation bilaterally Cardio Rate: regular rate Rhythm: regular rhythm Extrem General: normal to inspection, normal capillary refill and no clubbing, cyanosis or edema Right upper extremity: normal to inspection, normal capillary refill and edema (mild swelling to fingers, unchanged since surgery) Course Vital Signs Temperature 36.9 C 09/20/18 20:32 Pulse 91 H 09/20/18 20:32 Respiratory Rate 22 09/20/18 20:32 Blood Pressure 147/85 H 09/20/18 20:32 Pulse Oximetry 96 09/20/18 20:32 Temperature 36.9 C 09/20/18 20:32 Temperature Source Skin 09/20/18 20:32 Pulse 91 H 09/20/18 20:32 Respiratory Rate 22 09/20/18 20:32 Respiratory Effort 09/20/18 20:35 Respiratory Depth Normal 09/20/18 20:35 Respiratory Pattern Normal 09/20/18 20:35 Blood Pressure 147/85 H 09/20/18 20:32 Blood Pressure Position Sitting 09/20/18 20:32 Pulse Oximetry 96 09/20/18 20:32 Oxygen Delivery Method Room Air 09/20/18 20:32 Oxygen Flow Rate 0 09/20/18 20:32 Pain Level 5 09/20/18 20:32
--- NOTE | 2018-09-20 21:05 | ED.GENADUL_ITS ---
Discharge Plan Disposition Patient Disposition: HOME Condition: Stable Discharge Details Chief Complaint: GenMedical Clinical Impression: Epicondylitis, lateral, right Primary Care Provider: Zoltan Mireles ED Provider: Bo Metzger Home Meds and New Rx's Prescriptions: Continued docusate sodium 100 mg capsule 100 mg PO BID PRNRF: 0 Mirena 1 EACH intrauterine device 1 ea Intrauterine ONCE Qty: 1 RF: 0 Botox 100 UNIT recon soln 100 unit IJ every 3 months RF: 0 citalopram [Celexa] 20 MG tablet 40 mg PO DAILY RF: 0 VITAMIN D3 1,000 UNIT capsule 1,000 unit PO DAILY RF: 0 estradiol 1 MG tablet 1 mg PO DAILY Qty: 90 RF: 3 hydrocodone-acetaminophen 5-325 mg Tablet 1 - 2 tab PO Q4H PRN PRN (Reason: Pain) Qty: 18 RF: 0 acetaminophen [Tylenol] 325 MG tablet 325 mg PO Q4H PRN PRNRF: 0 ibuprofen [IBU] 600 mg tablet 600 mg PO QID PRN (Reason: pain) Qty: 14 RF: 0 Discharge Instructions Instructions: Tennis Elbow (ED) Additional Instructions: With the forearm Airsoft splint as needed for discomfort and continue your normal prescribed medications. Feel free to return to the emergency department for any new or worsening symptoms, any severe color changes to your hand or loss of sensation, or significant changes in swelling. Otherwise follow-up with Dr. Pop as needed or prearranged Referrals: Bobby Pop MD [ [facility] STAFF PHYSICIAN] - Discharge Data Discharge Date/Time-TO BE ENTERED AT DEPARTURE: 09/20/18 21:36 Medical Decision Making Patient presenting the emergency department for chief complaint of right arm pain. Patient states that she had casting placed in orthopedic office today and shortly afterwards noticed sensation of cast being extremely tight. She denies any swelling to the fingers, change in sensation to the fingers numbness or tingling. Physical exam shows normal cap refill of the fingers, warm, normal sensation. Was able to insert at least one finger into the upper portion of the cast which did not feel tight, no evidence of compartment syndrome or significant swelling. Patient did have lateral epicondyle tenderness and with compression of the forearm patient's symptoms went away. I feel that given melissa ent wearing splinting she has developed some epicondylitis. Patient was given an Aircast pillow which relieved her symptoms. Patient was instructed on activity modifications. Patient to follow-up with orthopedist as previously scheduled or as needed. After discussion of diagnosis and plan of care patient has no further needs, questions, or concerns and states clear understanding to return to the emergency department for any worsening symptoms. HPI General Date/Time Provider Initiated Documentation: 09/20/18 20:35 . Limitations to Documentation: no limitations . Information obtained by: patient . History of Present Illness 52 year old F presents to the emergency department with the chief complaint of R wrist pain post-casting, described as moderate, with intensity rated at 5. Quality is described as other (like it is being stranged), and is localized to the right and upper extremity. Patient started experiencing this hour(s) (10 hours) and it has been constant. No relieving factors improve symptom(s),; worse with cold therapy No exacerbating factors reported . Patient notes no other symptoms.. Patient did receive the following treatments prior to arrival, N SAID and cold therapy (no relief with ice or elevation) HPI Narrative: Pt had surgery 2 weeks ago on R wrist, has been progressing well in recovery. Had cast changed today and stitches removed, new cast applied at approx 11 am. Has been c/o pain to forearm since then. Related Data Home Medications Medication Instructions Recorded Confirmed Mirena 1 ea INTRAUTERINE ONCE #1 implant 05/03/15 09/20/18 Botox 100 unit IJ every 3 months vial 10/07/15 09/20/18 citalopram [Celexa] 40 mg PO DAILY tab-cap 10/07/15 09/20/18 Vitamin D3 1,000 unit PO DAILY 10/21/15 09/20/18 estradiol 1 mg PO DAILY #90 tab-cap 10/09/16 09/20/18 acetaminophen [Tylenol] 325 mg PO Q4H PRN PRN tab 12/26/16 09/20/18 ibuprofen [IBU] 600 mg PO QID PRN #14 tab 01/27/18 09/20/18 docusate sodium 100 mg capsule 100 mg PO BID PRN 04/15/18 09/20/18 hydrocodone-acetaminophen 1 - 2 tab PO Q4H PRN PRN #18 tab 09/06/18 09/20/18 Previous Rx's Medication Instructions Recorded acetaminophen [Tylenol] 325 mg PO Q4H PRN PRN tab 12/26/16 ibuprofen [IBU] 600 mg PO QID PRN #14 tab 01/27/18 hydrocodone-acetaminophen 1 - 2 tab PO Q4H PRN PRN #18 tab 09/06/18 Allergies Allergy/AdvReac Type Severity Reaction Status Date / Time No Known Allergies Allergy Verified 09/20/18 20:34 General Stated Complaint: GenMedical SHANIKA: 4 Review of Systems Review of Systems All systems reviewed & are unremarkable except as noted in HPI and below Musculoskeletal Comments: Pain to R forearm. No numbness/tingling to fingers. Integumentary/Breasts Denies change in pigmentation, Denies erythema, Denies rash and Denies skin swelling [facility] Medical History Family history of colon cancer (Acute) Chronic anal fissure (Acute) History of hemorrhoids (Acute) Bleeding external hemorrhoids Chronic migraine Internal hemorrhoids Premenopausal menorrhagia Surgical History S/P colonoscopy (Acute ~05/07/18) History of bilateral carpal tunnel release (Acute) S/P Botox injection (Acute) History of hemorrhoidectomy (Chronic) Colonoscopy - IV Sedation (~2012) L shoulder surgery Family History Mother Diabetes Heart disease Colon polyps Other Personal history of malignant neoplasm Sister Colon polyps Social History Smoking/Tobacco Use Status: Former Tobacco Use Quit Date: 04/30/90 Alcohol Intake: current Alcohol Intake frequency: holidays/special occasions only Alcohol type: beer and wine Drug use: Daily Substance use type: marijuana Details: marijuana last night around 1800 Do you feel safe at home: Yes Do you feel safe in your relationship?: Yes Exam Const General: cooperative and no acute distress Resp Effort & Inspection: normal respiratory effort Auscultation: clear to auscultation bilaterally Cardio Rate: regular rate Rhythm: regular rhythm Extrem General: normal to inspection, normal capillary refill and no clubbing, cyanosis or edema Right upper extremity: normal to inspection, normal capillary refill and edema (mild swelling to fingers, unchanged since surgery) Course Vital Signs Temperature 36.9 C 09/20/18 20:32 Pulse 91 H 09/20/18 20:32 Respiratory Rate 22 09/20/18 20:32 Blood Pressure 147/85 H 09/20/18 20:32 Pulse Oximetry 96 09/20/18 20:32 Temperature 36.9 C 09/20/18 20:32 Temperature Source Skin 09/20/18 20:32 Pulse 91 H 09/20/18 20:32 Respiratory Rate 22 09/20/18 20:32 Respiratory Effort 09/20/18 20:35 Respiratory Depth Normal 09/20/18 20:35 Respiratory Pattern Normal 09/20/18 20:35 Blood Pressure 147/85 H 09/20/18 20:32 Blood Pressure Position Sitting 09/20/18 20:32 Pulse Oximetry 96 09/20/18 20:32 Oxygen Delivery Method Room Air 09/20/18 20:32 Oxygen Flow Rate 0 09/20/18 20:32 Pain Level 5 09/20/18 20:32
== END 2018-09-20 21:36 | disposition home or self-care (01) ==
PROVIDERS: Emergency Provider Nurse Practitioner Family; PCP General Practice
DX: M77.11 Lateral epicondylitis, right elbow; Y84.8 Other medical procedures as the cause of abnormal reaction of the patient, or of later complication, without mention of misadventure at the time of the procedure
CPT/HCPCS: 29125; 99283

== ENCOUNTER 2018-10-18 13:39 | Outpatient (REF) | payer MEDICAID, SELFPAY ==
--- NOTE | 2018-10-18 11:15 | PAPFT_PTH ---
PATIENT: Catarina Lynn LOC: [facility] U#:[id number] AGE/SX: 52/F ROOM: RE10/18/[address]: ELIDIA Martinez : 1965 BED: DIS: 10/18/2018 SPEC #: [id number] RECD: 10/18/18 17:15 STATUS: ARMEN REQ #: [id number] MELINA: 10/18/18 11:[address]: Kyra Murray DEPT: [facility] Cytology RECD BY: Rachele Mccray ENTERED: 10/18/18 17:15 SP TYPE: PAPFT OTHR DR: Zoltan Mireles Tissues: 1 - CX/ENDOCX FOR PAP SMEARS Procedures: PAP THIN PREP/[facility] Screening HPV DNA PROBE Comments: [id number]
== END 2018-10-18 13:59 ==
LOC: LBN 13:39
PROVIDERS: PCP General Practice; Visit Provider Nurse Practitioner Family
DX: Z12.4 Encounter for screening for malignant neoplasm of cervix (principal); Z11.51 Encounter for screening for human papillomavirus (HPV)
CPT/HCPCS: 88142; 87624

== ENCOUNTER 2018-10-21 16:37 | Emergency (ER) | payer MEDICAID, SELFPAY ==
[2018-10-21 16:46] VITALS: BP 161/80; PULSE 97; RESP 16; TEMP 36.7; O2SAT 99
--- NOTE | 2018-10-21 16:49 | ED.GENADUL_ITS ---
Discharge Plan Disposition Patient Disposition: HOME Condition: Stable Discharge Details Chief Complaint: Cellulitis Clinical Impression: Swelling of joint, wrist, right, Cellulitis of right wrist Primary Care Provider: Zoltan Mireles ED Provider: Kinza Dale Home Meds and New Rx's Prescriptions: New cephalexin [Keflex] 500 mg capsule 500 mg PO QID 7 Days Qty: 28 RF: 0 Continued docusate sodium 100 mg capsule 100 mg PO BID PRNRF: 0 Mirena 1 EACH intrauterine device 1 ea Intrauterine ONCE Qty: 1 RF: 0 Botox 100 UNIT recon soln 100 unit IJ every 3 months RF: 0 citalopram [Celexa] 20 MG tablet 40 mg PO DAILY RF: 0 VITAMIN D3 1,000 UNIT capsule 1,000 unit PO DAILY RF: 0 acetaminophen [Tylenol] 325 MG tablet 325 mg PO Q4H PRN PRNRF: 0 ibuprofen [IBU] 600 mg tablet 600 mg PO QID PRN (Reason: pain) Qty: 14 RF: 0 Discharge Instructions Instructions: Cellulitis (ED) Additional Instructions: Take the antibiotics until finished. Wear your right wrist splint until follow-up with orthopedics. Rest, ice, elevate right wrist as much as possible. Call orthopedics tomorrow to schedule a follow-up appointment for reevaluation tomorrow. Return to emergency department if you develop any worsening or new concerning symptoms of fever, increased pain, redness or swelling. Referrals: Mike Sainz MD [ [facility] STAFF PHYSICIAN] - Discharge Data Discharge Date/Time-TO BE ENTERED AT DEPARTURE: 10/21/18 17:47 Discharge Physician: Kinza Dale Medical Decision Making 52-year-old female who is 6 weeks status post Interpositional arthroplasty trapeziometacarpal joint using one-half of the flexor carpi radialis who presents with right wrist and hand pain and swelling over the last few days. She had a right wrist splint removed by Dr. Pop 4 days ago. Sutures were removed 2 weeks postop. Denies any new injury or fever. There is notable mild to moderate edema to the right wrist base of right thumb and all fingers. Surgical scar is well-healed and notes a small area of possible early cellulitis on the distal aspect but no discrete abscess, induration or fluctuance. She is neurovascular intact. There is no ecchymosis. No indication for x-ray as there is no new injury or evidence of trauma and patient agreeable. Case discussed with Dr. Sainz -agrees with plan for Keflex for possible early cellulitis. Patient can call their office tomorrow to schedule follow-up appointment for reevaluation tomorrow. Patient is instructed to replace her splint to help with compression and pain. She is instructed to rest, ice and elevate. She is instructed return here with any worsening or new concerning symptoms. HPI General Mode of arrival: ambulatory . Date/Time Provider Initiated Documentation: 10/21/18 16:46 . Limitations to Documentation: no limitations . Information obtained by: patient . HPI Narrative: Patient is a 52-year-old female who is 6 weeks status post Interpositional arthroplasty trapeziometa carpal joint using one-half of the flexor carpi radialis with Dr. Pop who presents with concern for possible cellulitis and swelling in her right wrist. Patient states that she last saw Dr. Pop 4 days ago and he was able to remove her splint as she had been doing much better. She had her sutures removed 2 weeks postop. She states she had a small area of redness near her right radial wrist but this is gotten slightly larger now with also right wrist and hand swelling with difficulty flexing her fingers due to swelling for the past few days. She denies any fever or new injury. Related Data Home Medications Medication Instructions Recorded Confirmed Mirena 1 ea INTRAUTERINE ONCE #1 implant 05/03/15 10/18/18 Botox 100 unit IJ every 3 months vial 10/07/15 10/18/18 citalopram [Celexa] 40 mg PO DAILY tab-cap 10/07/15 10/18/18 Vitamin D3 1,000 unit PO DAILY 10/21/15 10/18/18 acetaminophen [Tylenol] 325 mg PO Q4H PRN PRN tab 12/26/16 10/18/18 ibuprofen [IBU] 600 mg PO QID PRN #14 tab 01/27/18 10/18/18 docusate sodium 100 mg capsule 100 mg PO BID PRN 04/15/18 10/18/18 cephalexin [Keflex] 500 mg PO QID 7 Days #28 cap 10/21/18 Previous Rx's Medication Instructions Recorded acetaminophen [Tylenol] 325 mg PO Q4H PRN PRN tab 12/26/16 ibuprofen [IBU] 600 mg PO QID PRN #14 tab 01/27/18 cephalexin [Keflex] 500 mg PO QID 7 Days #28 cap 10/21/18 Allergies Allergy/AdvReac Type Severity Reaction Status Date / Time No Known Allergies Allergy Verified 10/18/18 10:49 General SHANIKA: 4 Review of Systems Review of Systems All systems reviewed & are unremarkable except as noted in HPI and below Constitutional Reports as per HPI, Denies chills and Denies fever(s) Eyes Denies blurry vision ENT Denies dizziness, Denies sore throat and Denies throat swelling Cardiovascular Denies chest pain and Denies dyspnea Respiratory Denies cough and Denies dyspnea Gastrointestinal Denies abdominal pain, Denies diarrhea and Denies vomiting Genitourinary Denies hematuria and Denies dysuria Musculoskeletal Denies back pain and Denies numbness Integumentary/Breasts Denies lesions and Denies rash Neurologic Denies dizziness, Denies focal weakness and Denies numbness Allergic/Immunologic Denies throat swelling [facility] Medical History IUD surveillance (Acute) Chronic migraine (Chronic) Chronic anal fissure (Acute) Arthritis of carpometacarpal (CMC) joint of right thumb (Acute) Arthritis of hand (Acute) Arthritis of hand, degenerative (Acute) Bilateral carpal tunnel syndrome (Acute 11/06/16) Complex regional pain syndrome affecting both upper arms (Acute 01/24/17) Internal derangement of right knee (Acute 05/02/17) Migraine with aura (Acute 12/04/13) 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) Family history of colon cancer (Acute) Bleeding external hemorrhoids (Resolved) History of hemorrhoids (Resolved) Internal hemorrhoids (Resolved) Premenopausal menorrhagia (Resolved) Surgical History History of bilateral carpal tunnel release (Acute) S/P Botox injection (Acute) S/P colonoscopy (Acute ~05/07/18) History of hemorrhoidectomy (Chronic) Colonoscopy - IV Sedation (~2012) L shoulder surgery Family History Mother Diabetes Heart disease Colon polyps Other Personal history of malignant neoplasm Sister Colon polyps Social History Smoking/Tobacco Use Status: Former Tobacco Use Quit Date: 04/30/90 Alcohol Intake: current Alcohol Intake frequency: holidays/special occasions only Alcohol type: beer and wine Drug use: Daily Substance use type: marijuana Details: marijuana last night around 1800 Do you feel safe at home: Yes Do you feel safe in your relationship?: Yes Exam Const General: cooperative, healthy appearing and no acute distress HENMT Head: normal to inspection Mouth: oral mucosae normal Eyes General: appearance normal, both eyes and all related structures Neck Neck: normal visual inspection Resp Effort & Inspection: normal respiratory effort and able to speak in complete sentences Cardio Rate: regular rate Skin General skin exam: no rashes or lesions noted Neuro General: alert, awake and oriented x3 Motor: muscle tone normal throughout Extrem Elbow/forearm/wrist images: 1. Well-healed surgical scar with no signs of drainage or erythema for the majority of the scar. There is a 4 mm x 1 cm area of raised erythema and te nderness in the distal end of the scar. There is no drainage, induration or fluctuance. Other: Limited extension and flexion at wrist due to pain and swelling. There is mild to moderate amount of swelling noted to base of right thumb as well as all fingers. Limited flexion of fingers due to swelling. Cap refill less than 2 seconds. No signs of flexor tenosynovitis. Psych Appearance: grossly normal Affect: normal affect
--- NOTE | 2018-10-21 17:51 | NUR.NOTE ---
pt dc home dc/rx reviewed with pt able to vebrlize understanding ambualtory steady on dc no dsitress noted none stated Nursing Note:
== END 2018-10-21 17:47 | disposition home or self-care (01) ==
PROVIDERS: Emergency Provider Physician Assistant; PCP General Practice
DX: L03.113 Cellulitis of right upper limb (principal); R60.0 Localized edema; Z98.890 Other specified postprocedural states
CPT/HCPCS: 99283

== ENCOUNTER 2018-10-23 10:09 | Outpatient (CLI) | payer MEDICAID, SELFPAY ==
--- NOTE | 2018-10-23 10:07 | DI.RAD_ITS ---
SYMPTOMS/DIAGNOSIS: RT WRIST PAIN AND SWELLING RIGHT WRIST: Three views were obtained. There is a mild ulnar minus variance. There is mild patchy demineralization of the bones of the wrist and hand. There is apparent previous resection of the greater multangular bone. There are degenerative changes at the lesser multangular metacarpal joints.
== END 2018-10-23 10:29 ==
PROVIDERS: PCP General Practice; Visit Provider Student in an Organized Health Care Education/Training Program
DX: M18.11 Unilateral primary osteoarthritis of first carpometacarpal joint, right hand (principal); M25.531 Pain in right wrist
CPT/HCPCS: 73110

== ENCOUNTER 2018-11-06 00:45 | Outpatient (CLI) | payer MEDICAID, SELFPAY ==
--- NOTE | 2018-11-06 11:51 | DI.MAMMO_ITS ---
SYMPTOM/DIAGNOSIS: SCREENING, Z12.31 MAMMOGRAMS: Mammograms were interpreted according to the usual protocol including computer analysis with CAD system, tomosynthesis and C view imaging. The breasts are of moderate density with fairly symmetrical distribution of fibroglandular tissue. No dominant mass or clumped microcalcification is identified in either breast. Current examination is compared with previous examinations including 09/2016 and there has been no gross interval change in appearance in comparison with the previous studies. CONCLUSION: No specific evidence of malignancy at this time. Routine screening examinations are suggested at yearly intervals due to the family history of breast carcinoma. Category 1. Breast density, category B. MQSA ASSESSMENT OF FINDINGS: Negative. Category 1. Patient will receive a letter notifying them of these results. BI-RADS category B. There are scattered areas of fibroglandular density.
== END 2018-11-06 01:05 ==
PROVIDERS: PCP General Practice; Visit Provider Nurse Practitioner Family
DX: Z12.31 Encounter for screening mammogram for malignant neoplasm of breast (principal); Z80.3 Family history of malignant neoplasm of breast
CPT/HCPCS: 77063; 77067

== ENCOUNTER 2018-12-25 09:19 | Observation (INO) | payer MEDICAID, SELFPAY ==
[2018-12-25] VITALS (35 sets, daily range): BP systolic 137–163; BP diastolic 77–107; PULSE 66–108; RESP 10–26; TEMP 36.5–37.1; O2SAT 92–98
[2018-12-25] MEDS: Normal Saline 1,000 ML 1000 ML IV ×2 (09:30→10:15)
--- NOTE | 2018-12-25 09:45 | DI.CT_ITS ---
SYMPTOM/DIAGNOSIS: CHEST PAIN, ? CHEST OR MEDIASTINAL ABSCESS, SOB, ? PE PE CHEST CT: CT angiography was performed with multi slice acquisition and multi planar and 3D reconstruction. Routine examination was performed. There is no evidence of a pulmonary embolus. The thoracic aorta is of normal caliber. No aneurysmal dilatation or dissection is present. Heart size is within normal limits. No significant pericardial effusion is seen. No evidence of right ventricular dysfunction is present. No significant thoracic adenopathy, pleural effusion or pneumothorax is identified. The esophagus appears grossly unremarkable. There are no focal consolidating infiltrates. The tracheobronchial tree is unremarkable. The bones are intact. IMPRESSION: No acute abnormality. No evidence of a pulmonary embolus, thoracic aortic dissection or aneurysm. The findings were discussed with the ER on the date of the examination.
--- NOTE | 2018-12-25 09:59 | ED.GENADUL_ITS ---
Discharge Plan Disposition Patient Disposition: [facility] INPATIENT Condition: Fair Discharge Details Chief Complaint: Chest/Rib Clinical Impression: Cellulitis, Atypical chest pain, Lactic acid increased Primary Care Provider: Zoltan Mireles ED Provider: Marielle Bruce Home Meds and New Rx's Prescriptions: No Action docusate sodium 100 mg capsule 100 mg PO BID PRNRF: 0 Mirena 1 EACH intrauterine device 1 ea Intrauterine ONCE Qty: 1 RF: 0 Botox 100 UNIT recon soln 100 unit IJ every 3 months RF: 0 VITAMIN D3 1,000 UNIT capsule 1,000 unit PO DAILY RF: 0 acetaminophen [Tylenol] 325 MG tablet 325 mg PO Q4H PRN PRNRF: 0 ibuprofen [IBU] 600 mg tablet 600 mg PO QID PRN (Reason: pain) Qty: 14 RF: 0 Medical Decision Making Patient with abnormal presentation of acute chest pain associated with the anterior erythema, swelling and tenderness of the chest wall in the midline. Patient is mildly clammy and anxious at this time. Respiratory effort is easy. Initial EKG unremarkable for ischemic changes. Labs ordered, CT with IV contrast ordered to identify any site of infection in the chest wall. IV fluids as well as medication for pain offered. Will start with a form of and Toradol. This was discussed with attending physicians. CT unremarkable for any obvious fluid collections in the anterior chest. No pulmonary embolism. No mediastinal inflammation or lymph nodes which are obvious per radiologist verbally. Discussed with patient after CAT scan. She is still obviously uncomfortable in bed. Requesting additional pain medication. Morphine 2 mg and Zofran ordered. Spoke with my attending who also evaluated the patient at the bedside does feel admission is appropriate at this time. 1145 - Spoke with the hospitalist regarding case and clinical concerns. Will evaluate patient in the emergency room in approximately 20 minutes. Recommend beginning antibiotics at this time. HPI General Date/Time Provider Initiated Documentation: 12/25/18 09:20 . HPI Narrative: Patient presents for complaints of chest pain which began yesterday while working. Patient reports anterior midline chest pain without radiation. Patient reports mild swelling noted to the anterior chest this morning, moderate tenderness at the site with palpation. Patient noted pain which is constant and aching. Patient reports pain is worse with range of motion of arms and deep breathing. Patient denies exertional changes in pain. Patient does report mild shortness of breath when walking to work this morning. Patient did report mild diaphoresis when arriving at work. Mild nausea today. Denies abdominal pain. No bowel changes or urinary changes. No injury or trauma to the site. Denies headache. Denies measured fever. No chills. No history of recent URI. Denies cough. Related Data Home Medications Medication Instructions Recorded Confirmed Mirena 1 ea INTRAUTERINE ONCE #1 implant 05/03/15 12/25/18 Botox 100 unit IJ every 3 months vial 10/07/15 12/25/18 Vitamin D3 1,000 unit PO DAILY 10/21/15 12/25/18 acetaminophen [Tylenol] 325 mg PO Q4H PRN PRN tab 12/26/16 12/25/18 ibuprofen [IBU] 600 mg PO QID PRN #14 tab 01/27/18 12/25/18 docusate sodium 100 mg capsule 100 mg PO BID PRN 04/15/18 12/25/18 Previous Rx's Medication Instructions Recorded acetaminophen [Tylenol] 325 mg PO Q4H PRN PRN tab 12/26/16 ibuprofen [IBU] 600 mg PO QID PRN #14 tab 01/27/18 Allergies Allergy/AdvReac Type Severity Reaction Status Date / Time Iodinated Contrast Media Allergy Skin Rash Unverified 12/25/18 12:31 morphine AdvReac Skin Rash Unverified 12/25/18 12:31 General Stated Complaint: GenMedical SHANIKA: 3 Review of Systems Review of Systems CONSTITUTIONAL: The patient denies fevers, chills. EYES: Denies vision changes, blurry vision, or eye pain. ENT: Denies hearing changes, tinnitus, vertigo, sore throat. CARDIAC: Positive chest pain, positive SOB. RESPIRATORY: Denies cough, sputum. Denies difficulty breathing. GASTROINTESTINAL: Denies abdominal pain, changes in bowel, denies vomiting, positive nausea. GENITOURINARY: Denies dysuria, or frequency of urination. MUSCULOSKELETAL: Denies Joint pain, gait changes. NEUROLOGIC: Denies headaches, Denies focal weakness. Denies numbness. INTEGUMENT: Denies rashes. PSYCHIATRIC: Denies behavior changes. Denies anxiety or depression. ENDOCRINOLOGY: Denies fatigue. PSYCHIATRY: Denies depression, agitation or anxiety [facility] Medical History Arthritis of carpometacarpal (CMC) joint of right thumb (Acute) Arthritis of hand (Acute) Arthritis of hand, degenerative (Acute) Bilateral carpal tunnel syndrome (Acute 11/06/16) Bleeding external hemorrhoids (Resolved) Chronic anal fissure (Acute) Chronic migraine (Chronic) Complex regional pain syndrome affecting both upper arms (Acute 01/24/17) Family history of colon cancer (Acute) History of hemorrhoids (Resolved) Internal derangement of right knee (Acute 05/02/17) Internal hemorrhoids (Resolved) IUD surveillance (Acute) Migraine with aura (Acute 12/04/13) Premenopausal menorrhagia (Resolved) 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) Surgical History Colonoscopy - IV Sedation (~2012) History of bilateral carpal tunnel release (Acute) History of hemorrhoidectomy (Chronic) L shoulder surgery S/P Botox injection (Acute) S/P colonoscopy (Acute ~05/07/18) Family History Mother Diabetes Heart disease Colon polyps Other Personal history of malignant neoplasm Aunts w/ colon cancer, mother with cervical and breast ca Sister Colon polyps Social History Smoking/Tobacco Use Status: Former Tobacco Use Quit Date: 04/30/90 Alcohol Intake: current Alcohol Intake frequency: holidays/special occasions only Alcohol type: beer and wine Drug use: Daily Substance use type: marijuana Details: marijuana last night around 1800 Do you feel safe at home: Yes Do you feel safe in your relationship?: Yes Exam Narrative Exam Narrative: CONST: Healthy appearing patient, anxious appearing. Clammy. Well hydrated. Alert and alert. HENMT: Head nomocephalic, normal to inspection. Atraumatic. Hearing grossly normal. External ear canal no erythema or swelling. TM normal bilaterally. Nose normal to inspection. No rhinnorhea. Normal facial exam. Oral mucosa normal. Tounge normal. Dentition normal. Normal posterior oropharynx. Uvula midline. EYES: General normal appearance. Alignment normal. Eyelids normal. Conjunctiva normal. Sclera normal. PERRL. NECK: Normal visual inspection. FROM. No lymphadenopathy. Trachea midline. No Midline tenderness. CHEST: Anterior chest wall with mild erythema, fullness with palpation which is seemingly well demarcated. No obvious fluctuation. Tenderness with palpation of the anterior midline of the chest wall. RESP: Normal respiratory effort. Speaking full sentences. No cough. No wheezing. No retractions. Clear to auscaltation. Breath sound equal and present bilaterally. CARDIO: No JVD. Normal PMI. Regular Rate. Regular Rhythm. Normal peripheral pulses. GI: Normal inspection of abdomen. No distension. Soft. Nontender. Bowel sounds present in all 4 quadrants. No rebound. No gaurding. MUSCULOSKELETAL: Normal Gait. FROM of all extremities. Distal neurovascularly intact. Sensation intact distally. SKIN: Normal. Clammy. No rashes. NEURO: Alert and awake. Speech clear. PSYCH: Normal affect. Cooperative. Course Vital Signs Temperature 36.5 C 12/25/18 09:22 Pulse 108 H 12/25/18 09:22 Blood Pressure 163/107 H 12/25/18 09:22 Pulse Oximetry 96 12/25/18 09:22 Temperature 36.5 C 12/25/18 09:22 Temperature Source Skin 12/25/18 09:22 Pulse 108 H 12/25/18 09:22 Respiratory Effort 12/25/18 09:33 Respiratory Depth Shallow 12/25/18 09:33 Respiratory Pattern Tachypnea 12/25/18 09:33 Blood Pressure 163/107 H 12/25/18 09:22 Pulse Oximetry 96 12/25/18 09:22 Oxygen Delivery Method Room Air 12/25/18 09:22 Oxygen Flow Rate 0 12/25/18 09:22 Pain Level 9 12/25/18 09:33 Lab/Test Results Lab/Test Results: 12/25/18 09:42 Blood Blood Culture - Pending 12/25/18 09:42 Blood Blood Culture - Pending
[2018-12-25 10:10] LABS: Abs Immature Grans 0.01 k/cumm (0.0-0.09); Absolute Basophil Count 0.02 k/cumm (0.0-0.2); Absolute Eosinophil Count 0.11 k/cumm (0.0-0.7); Absolute Lymphocyte Count 4.77 k/cumm (1.2-3.4); Absolute Monocyte Count 0.43 k/cumm (0.11-0.7); Absolute Neutrophil Count 2.84 k/cumm (1.2-6.7); Basophils % 0.2; Eosinophils % 1.3; HCT 44.2 % (36.0-46.0); HGB 14.8 g/dL (12.0-15.5); Immature Grans % 0.1; Lymphocytes % 58.3; Mean Corp. HGB Concentration 33.5 g/dL (32.0-36.0); Mean Corpuscular Hemoglobin 30.1 pg (27.0-33.0); Mean Corpuscular Volume 89.8 fL (80-95); Mean Platelet Volume 9.1 fL (8.0-11.0); Monocytes % 5.3; Neutrophils % 34.8; Platelet Count 333 x1000/uL (130-400); RBC 4.92 m/cumm (4.00-5.20); RBC Distribution Width 12.4 % (11.7-14.6); White Blood Cell Count 8.18 k/cumm (4.4-10.8)
[2018-12-25 10:13] LABS: Lactate 2.4 mmol/L (0.6-1.4)
[2018-12-25 10:19] LABS: Prothrombin Time 9.6 sec (9.3-11.0)
[2018-12-25] MEDS: ACETAMINOPHEN 1,000 MG/100 ML BTL 400 MG IVPB (10:29)
[2018-12-25 10:30] LABS: PTT Activated 22.9 sec (21.0-31.4)
[2018-12-25] MEDS: Ketorolac 15 MG/ML VIAL IVP (10:30)
[2018-12-25 10:35] LABS: ALT 32 U/L (14-59); AST 20 U/L (15-37); Alkaline Phosphatase 104 U/L (46-116); Anion Gap 10.8 mmol/L (3-11); BUN 8 mg/dL (7-18); Bilirubin, Total 0.7 mg/dL (0.2-1.0); CO2 26.2 mmol/L (21.0-32.0); CREATININE 0.77 mg/dL (0.55-1.02); Calcium 9.1 mg/dL (8.5-10.1); Chloride 104 mmol/L (98-107); Glucose 110 mg/dL (70-100); Potassium 3.7 mmol/L (3.5-5.1); Sodium 141 mmol/L (136-145); Total Protein 7.6 g/dL (6.4-8.2)
[2018-12-25 10:40] LABS: Troponin I < 0.05 ng/mL (0.00-0.06)
[2018-12-25 11:06] LABS: Bilirubin Negative (Negative); Blood Trace-lysed (Negative); Clarity Clear (Clear); Glucose Negative (Negative); Ketones Negative (Negative); Leukocyte Esterase Negative (Negative); Nitrite Negative (Negative); Urobilinogen 0.2 EU/dL (Up TO 0.2)
[2018-12-25] MEDS: Omnipaque 350 MG/ML 100 ML BTL IV (11:10)
[2018-12-25] MEDS: Ondansetron 4 MG/2 ML VIAL IVP (11:37)
[2018-12-25 11:38] LABS: Bacteria Negative HPF (Negative); C & S Indicated? No; Casts Negative LPF (Negative); Crystals Negative HPF (Negative); Epithelial Cells Negative HPF (Negative); Mucus Trace (Negative); Other Cells Negative (Negative); RBC Negative (0-2); WBC 0-2 HPF (0-5)
[2018-12-25] MEDS: PIPERACILLIN/TAZO 3.375 GM in Normal Saline 50 ML IVPB (12:02)
[2018-12-25 12:09] LABS: C-Reactive Protein 0.12 mg/dL (0.0-0.3)
[2018-12-25] MEDS: diphenhydrAMINE 50 MG/ML VIAL IVP (12:25)
[2018-12-25 13:53] LABS: *AMPHETAMINES SCREEN URINE Negative (Negative); *BARBITURATES SCREEN URINE Negative (Negative); *BENZODIAZEPINES SCREEN URINE Negative (Negative); Cannabinoids THC POSITIVE (Negative); Cocaine Screen,Urine Negative (Negative); METHADONE URINE SCREEN Negative (Negative); OPIATES URINE SCREEN Negative (Negative); Tricyclic Antidepressants Negative (Negative)
[2018-12-25] MEDS: Lidocaine 5% Patch 1 PATCH TP ×2 (13:57→16:12)
[2018-12-25 14:07] LABS: Lactate 0.9 mmol/L (0.6-1.4)
[2018-12-25] MEDS: Ibuprofen 600 MG TAB PO (15:34)
--- NOTE | 2018-12-25 16:09 | HPE_ITS ---
Date of service: 12/25/18 Time of Service: 16:09 Assessment and Plan (1) Chest wall hematoma: Current visit: Yes Status: Acute The cause of chest wall tenderness. I do not see any evidence of infection and will not continue antibiotics. Will monitor and provide pain control with tylenol/NSAIDS/lidocaine patches. It is certainly an odd place to have a hematoma. The patient had a negative mammogram last month. There does not appear to be associated lymphadenopathy. The patient denies trauma - based on patient's behavior in the room, I think there is a chance there is something she had not shared with me. Her whole family was present in the room during our conversation. ?spontaneous hematoma. Imaging is completely negative. Will monitor course overnight. (2) Lactic acidosis: Current visit: Yes Status: Resolved DDx: dehydration, false positive due to poor laboratory technique. (3) Tremors of nervous system: Current visit: Yes Status: Acute Anxiety vs possible reaction to pain vs substance withdrawal. UDS is negative with the exception of marijuana, to which the patient admits. We will monitor this overnight as well. (4) Anxiety: Current visit: Yes Status: Chronic As above (5) DVT prophylaxis: Current visit: Yes Status: Acute TEDs + SCD's. Avoid heparin. (6) Discharge planning issues: Current visit: Yes Status: Acute Full code. Patient is expected to go home tomorrow History of Present Illness Chief Complaint: chest pain Narrative: Ms Lynn is a 53 year old female with PMHx of CRPS, OA, chronic migraines, Obesity with BMI of 35, who presented to [facility] today complaining of chest pain. The patient states that the pain is in the mid upper chest, started about 2 days ago, and that it's tender around the bump that showed up there yesterday. She denies any trauma to the area or any insect bites. She has never had anything like this before. She has not had any lumps or bumps anywhere else. She had a normal mammogram in 10/2018. She reported feeling clammy this morning. Her Pain is 5/10, and it is uncomfortable to take a deep breath. She denies any fever, reports sweats in general, but not drenching night sweats - she always attributed them to her CRPS. This clamminess, she states, is different than her usual sweats. Sweats have been going on for a month. Denies any weight loss. When she presented to the ED, she was tachycardic to 108. Her BP was 145/84. She was afebrile, had a normal white count and no evidence of left shift. There seemed to be a mild erythema to the chest wall, so there was a concern for beginnings of mild cellulitis. This concern was also fueled by the patient's lactate of 2.4. She was given a dose of zosyn, and we were asked to admit the patient. The patient was ruled out for a PE. CTA of her chest also did not reveal any lymphadenopathy or abscess. She had a negative troponin and an EKG in the ED. The patient is still very anxious - she was tearful with the ED provider Dr De Souza, and expressed to me that she did not feel comfortable going home and would like to be monitored overnight for pain control. The patient states she drinks occasionally, does not disclose to me what the amount or frequency of her drinking is and is visibly unhappy when I ask her about drinking. Review of Systems Review of Systems 12 systems reviewed. Pertinent positives and negatives as per HPI. [facility], [facility] Medical History Arthritis of carpometacarpal (CMC) joint of right thumb (Acute) Arthritis of hand (Acute) Arthritis of hand, degenerative (Acute) Bilateral carpal tunnel syndrome (Acute 11/06/16) Bleeding external hemorrhoids (Resolved) Chronic anal fissure (Acute) Chronic migraine (Chronic) Complex regional pain syndrome affecting both upper arms (Acute 01/24/17) Family history of colon cancer (Acute) History of hemorrhoids (Resolved) Internal derangement of right knee (Acute 05/02/17) Internal hemorrhoids (Resolved) IUD surveillance (Acute) Migraine with aura (Acute 12/04/13) Premenopausal menorrhagia (Resolved) 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) Surgical History Colonoscopy - IV Sedation (~2012) History of bilateral carpal tunnel release (Acute) History of hemorrhoidectomy (Chronic) L shoulder surgery S/P Botox injection (Acute) S/P colonoscopy (Acute ~05/07/18) Family History Mother Diabetes Heart disease Colon polyps Other Personal history of malignant neoplasm Aunts w/ colon cancer, mother with cervical and breast ca Sister Colon polyps Social History Smoking/Tobacco Use Status: Former Tobacco Use Quit Date: 04/30/90 Alcohol Intake: current Alcohol Intake frequency: holidays/special occasions only Alcohol type: beer and wine Drug use: Daily Substance use type: marijuana Details: marijuana last night around 1800 Do you feel safe at home: Yes Do you feel safe in your relationship?: Yes Meds Home Medications Medication Instructions Recorded Confirmed Type Mirena 1 ea INTRAUTERINE ONCE #1 implant 05/03/15 12/25/18 History Botox 100 unit IJ every 3 months vial 10/07/15 12/25/18 History Vitamin D3 1,000 unit PO DAILY 10/21/15 12/25/18 History acetaminophen [Tylenol] 325 mg PO Q4H PRN PRN tab 12/26/16 12/25/18 Rx ibuprofen [IBU] 600 mg PO QID PRN #14 tab 01/27/18 12/25/18 Rx docusate sodium 100 mg capsule 100 mg PO BID PRN 04/15/18 12/25/18 History Allergies Allergy/AdvReac Type Severity Reaction Status Date / Time Iodinated Contrast Media Allergy Skin Rash Unverified 12/25/18 12:31 morphine AdvReac Skin Rash Unverified 12/25/18 12:31 Exam Narrative Exam Narrative: General: Middle aged obses female, very anxious, easily upset/irritable when asked about drinking, clammy, does not look sick Neurological: A&Ox3, no focal deficits, tremors noted in her hands, R>L Psychiatric: anxious Skin: upper chest with 3 -4 cm area of palpable hematoma with visible hype rpigmentation, TTP in the area, subtle telangiectasias on upper chest HEENT: Atraumatic, normocephalic, EOMI, dry MM, clear oropharynx, no submandibular or cervical lymphadenopathy, no goiter or JVD Cardiovascular: RRR, mildly tachycardic (tachycardia correlates with anxiety; HR goes down to 80's when calm, up to 110's when anxious), no m/r/g Lungs: CTAB Gastrointestinal: abdomen is soft, nondistended, nontender Extremities: no e/c/c BLE's, B hands are trumulous; R wrist incision is healing nicely Results Imaging Additional studies: EKG: NSR, HR 80, no acute ischemia Labs : 12/25/18 09:51 12/25/18 09:51 Laboratory Results - last 24 hr 12/25/18 12/25/18 12/25/18 09:51 09:51 09:51 WBC 8.18 RBC 4.92 Hgb 14.8 Hct 44.2 MCV 89.8 MCH 30.1 MCHC 33.5 RDW 12.4 Plt Count 333 MPV 9.1 Immature Gran % 0.1 Neutrophils % 34.8 Lymphocytes % 58.3 Monocytes % 5.3 Eosinophils % 1.3 Basophils % 0.2 Absolute Neutrophils 2.84 Absolute Lymphocytes 4.77 H Absolute Monocytes 0.43 Absolute Eosinophils 0.11 Absolute Basophils 0.02 PT INR APTT Sodium 141 Potassium 3.7 Chloride 104 Carbon Dioxide 26.2 Anion Gap 10.8 BUN 8 Creatinine 0.77 Estimated GFR/1.73 m2 >= 60.00 Glucose 110 H Lactate 2.4 H* Calcium 9.1 Total Bilirubin 0.7 AST 20 ALT 32 Alkaline Phosphatase 104 Troponin I C-Reactive Protein C-React Prot High Sens Total Protein 7.6 Albumin 4.0 Urine Color Urine Clarity Urine pH Ur Specific [place] Urine Protein Urine Ketones Urine Blood Urine Nitrite Urine Bilirubin Urine Urobilinogen Ur Leukocyte Esterase Urine RBC Urine WBC Ur Epithelial Cells Urine Crystals Urine Bacteria Urine Casts Urine Mucus Urine Other Ur Culture Indicated? Urine Glucose Urine Opiates Screen Urine Methadone Screen Ur Barbiturates Screen Ur Tricyclics Screen Ur Amphetamines Screen U Benzodiazepines Scrn Urine Cocaine Screen Ur THC Screen 12/25/18 12/25/18 12/25/18 09:51 09:51 09:51 WBC RBC Hgb Hct MCV MCH MCHC RDW Plt Count MPV Immature Gran % Neutrophils % Lymphocytes % Monocytes % Eosinophils % Basophils % Absolute Neutrophils Absolute Lymphocytes Absolute Monocytes Absolute Eosinophils Absolute Basophils PT 9.6 INR 1.0 APTT 22.9 Sodium Potassium Chloride Carbon Dioxide Anion Gap BUN Creatinine Estimated GFR/1.73 m2 Glucose Lactate Calcium Total Bilirubin AST ALT Alkaline Phosphatase Troponin I < 0.05 C-Reactive Protein C-React Prot High Sens Total Protein Albumin Urine Color Urine Clarity Urine pH Ur Specific [place] Urine Protein Urine Ketones Urine Blood Urine Nitrite Urine Bilirubin Urine Urobilinogen Ur Leukocyte Esterase Urine RBC Urine WBC Ur Epithelial Cells Urine Crystals Urine Bacteria Urine Casts Urine Mucus Urine Other Ur Culture Indicated? Urine Glucose Urine Opiates Screen Urine Methadone Screen Ur Barbiturates Screen Ur Tricyclics Screen Ur Amphetamines Screen U Benzodiazepines Scrn Urine Cocaine Screen Ur THC Screen 12/25/18 12/25/18 12/25/18 09:51 09:51 10:27 WBC RBC Hgb Hct MCV MCH MCHC RDW Plt Count MPV Immature Gran % Neutrophils % Lymphocytes % Monocytes % Eosinophils % Basophils % Absolute Neutrophils Absolute Lymphocytes Absolute Monocytes Absolute Eosinophils Absolute Basophils PT INR APTT Sodium Potassium Chloride Carbon Dioxide Anion Gap BUN Creatinine Estimated GFR/1.73 m2 Glucose Lactate Calcium Total Bilirubin AST ALT Alkaline Phosphatase Troponin I C-Reactive Protein 0.12 C-React Prot High Sens Cancelled Total Protein Albumin Urine Color Yellow Urine Clarity Clear Urine pH 6.0 Ur Specific [place] 1.010 Urine Protein Negative Urine Ketones Negative Urine Blood Trace-lysed H Urine Nitrite Negative Urine Bilirubin Negative Urine Urobilinogen 0.2 Ur Leukocyte Esterase Negative Urine RBC Negative Urine WBC 0-2 Ur Epithelial Cells Negative Urine Crystals Negative Urine Bacteria Negative Urine Casts Negative Urine Mucus Trace Urine Other Negative Ur Culture Indicated? No Urine Glucose Negative Urine Opiates Screen Urine Methadone Screen Ur Barbiturates Screen Ur Tricyclics Screen Ur Amphetamines Screen U Benzodiazepines Scrn Urine Cocaine Screen Ur THC Screen 12/25/18 12/25/18 10:27 14:03 WBC RBC Hgb Hct MCV MCH MCHC RDW Plt Count MPV Immature Gran % Neutrophils % Lymphocytes % Monocytes % Eosinophils % Basophils % Absolute Neutrophils Absolute Lymphocytes Absolute Monocytes Absolute Eosinophils Absolute Basophils PT INR APTT Sodium Potassium Chloride Carbon Dioxide Anion Gap BUN Creatinine Estimated GFR/1.73 m2 Glucose Lactate 0.9 Calcium Total Bilirubin AST ALT Alkaline Phosphatase Troponin I C-Reactive Protein C-React Prot High Sens Total Protein Albumin Urine Color Urine Clarity Urine pH Ur Specific [place] Urine Protein Urine Ketones Urine Blood Urine Nitrite Urine Bilirubin Urine Urobilinogen Ur Leukocyte Esterase Urine RBC Urine WBC Ur Epithelial Cells Urine Crystals Urine Bacteria Urine Casts Urine Mucus Urine Other Ur Culture Indicated? Urine Glucose Urine Opiates Screen Negative Urine Methadone Screen Negative Ur Barbiturates Screen Negative Ur Tricyclics Screen Negative Ur Amphetamines Screen Negative U Benzodiazepines Scrn Negative Urine Cocaine Screen Negative Ur THC Screen Positive Last Vital Signs Temp 37.1 C 12/25/18 14:34 Pulse 71 12/25/18 14:34 Resp 17 12/25/18 14:34 BP 145/84 H 12/25/18 14:34 Pulse Ox 95 12/25/18 14:34
[2018-12-25] MEDS: Normal Saline 1,000 ML 125 ML IV (16:20)
[2018-12-25] MEDS: Acetaminophen 325 MG TAB PO (17:01)
--- NOTE | 2018-12-25 18:53 | NUR.NOTE ---
Pt c/o uncontrolled pain and is upset that she is not being treated fairly/adequately, charge authorizer Iman notified and Dr. Johnson notified, no orders at this time. Pt medicated with ibuprofen and tylenol still c/o 11/06 pain, very upset and states she wants to file a complaint against Dr. Johnson. [employer] [place] called and came up to see pt, night Doctor Jose notified and refused narcotics as well. Pt upset and leaving [facility].
--- NOTE | 2018-12-26 09:30 | PGE_ITS ---
Date of Service Date of service: 12/26/18 Time of Service: 09:31 Subjective Interval history since last seen: The patient left AMA last night during the night time babysitter without any prescriptions. Objective Objective Clinical Data: Abnormal lab results 12/25/18 12/25/18 12/25/18 Range/Units 09:51 09:51 09:51 Absolute Lymphocytes 4.77 H (1.2-3.4) k/cumm Glucose 110 H (70-100) mg/dL Lactate 2.4 H* (0.6-1.4) mmol/L Urine Blood (Negative) 12/25/18 Range/Units 10:27 Absolute Lymphocytes (1.2-3.4) k/cumm Glucose (70-100) mg/dL Lactate (0.6-1.4) mmol/L Urine Blood Trace-lysed H (Negative) Vital Signs Temperature 37.1 C 12/25/18 14:34 Temperature Source Tympanic 12/25/18 14:34 Pulse 71 12/25/18 14:34 Pulse 72 12/25/18 14:10 Respiratory Rate 16 12/25/18 17:44 Respiratory Effort 12/25/18 16:05 Respiratory Depth Normal 12/25/18 16:05 Respiratory Pattern Normal 12/25/18 16:05 Blood Pressure 145/84 H 12/25/18 14:34 Blood Pressure Mean 95 12/25/18 12:00 Pulse Oximetry 95 12/25/18 14:34 Oxygen Delivery Method Room Air 12/25/18 14:34 Oxygen Flow Rate 0 12/25/18 14:34 Pain Level 5 12/25/18 17:44 Intake & Output 12/25/18 12/25/18 12/26/18 11:59 23:59 11:59 Intake Total 2099 Balance 2099 Weight 86.183 kg 86.183 kg Intake: IV 2099 Laboratory Results WBC 8.18 k/cumm (4.4-10.8) 12/25/18 09:51 RBC 4.92 m/cumm (4.00-5.20) 12/25/18 09:51 Hgb 14.8 g/dL (12.0-15.5) 12/25/18 09:51 Hct 44.2 % (36.0-46.0) 12/25/18 09:51 MCV 89.8 fL (80-95) 12/25/18 09:51 MCH 30.1 pg (27.0-33.0) 12/25/18 09:51 MCHC 33.5 g/dL (32.0-36.0) 12/25/18 09:51 RDW 12.4 % (11.7-14.6) 12/25/18 09:51 Plt Count 333 x1000/uL (130-400) 12/25/18 09:51 MPV 9.1 fL (8.0-11.0) 12/25/18 09:51 Immature Gran % 0.1 12/25/18 09:51 34.8 12/25/18 09:51 58.3 12/25/18 09:51 5.3 12/25/18 09:51 1.3 12/25/18 09:51 0.2 12/25/18 09:51 Absolute Neutrophils 2.84 k/cumm (1.2-6.7) 12/25/18 09:51 Absolute Lymphocytes 4.77 k/cumm (1.2-3.4) H 12/25/18 09:51 Absolute Monocytes 0.43 k/cumm (0.11-0.7) 12/25/18 09:51 Absolute Eosinophils 0.11 k/cumm (0.0-0.7) 12/25/18 09:51 Absolute Basophils 0.02 k/cumm (0.0-0.2) 12/25/18 09:51 PT 9.6 sec (9.3-11.0) 12/25/18 09:51 INR 1.0 (0.9-1.1) 12/25/18 09:51 APTT 22.9 sec (21.0-31.4) 12/25/18 09:51 Sodium 141 mmol/L (136-145) 12/25/18 09:51 Potassium 3.7 mmol/L (3.5-5.1) 12/25/18 09:51 Chloride 104 mmol/L (98-107) 12/25/18 09:51 Carbon Dioxide 26.2 mmol/L (21.0-32.0) 12/25/18 09:51 10.8 mmol/L (3-11) 12/25/18 09:51 BUN 8 mg/dL (7-18) 12/25/18 09:51 0.77 mg/dL (0.55-1.02) 12/25/18 09:51 >= 60.00 (mL/min/1.73m2) 12/25/18 09:51 Glucose 110 mg/dL (70-100) H 12/25/18 09:51 0.9 mmol/L (0.6-1.4) 12/25/18 14:03 Calcium 9.1 mg/dL (8.5-10.1) 12/25/18 09:51 0.7 mg/dL (0.2-1.0) 12/25/18 09:51 AST 20 U/L (15-37) 12/25/18 09:51 ALT 32 U/L (14-59) 12/25/18 09:51 104 U/L (46-116) 12/25/18 09:51 < 0.05 ng/mL (0.00-0.06) 12/25/18 09:51 0.12 mg/dL (0.0-0.3) 12/25/18 09:51 C-React Prot High Sens Cancelled 12/25/18 09:51 7.6 g/dL (6.4-8.2) 12/25/18 09:51 4.0 g/dL (3.4-5.0) 12/25/18 09:51 Yellow (Yellow) 12/25/18 10:27 Clear (Clear) 12/25/18 10:27 6.0 (5-8) 12/25/18 10:27 Ur Specific [place] 1.010 (1.005-1.025) 12/25/18 10:27 Negative mg/dL (Negative) 12/25/18 10:27 Negative mg/dL (Negative) 12/25/18 10:27 Trace-lysed (Negative) H 12/25/18 10:27 Negative (Negative) 12/25/18 10:27 Negative (Negative) 12/25/18 10:27 0.2 EU/dL (Up TO 0.2) 12/25/18 10:27 Ur Leukocyte Esterase Negative (Negative) 12/25/18 10:27 Negative (0-2) 12/25/18 10:27 0-2 HPF (0-5) 12/25/18 10:27 Ur Epithelial Cells Negative HPF (Negative) 12/25/18 10:27 Negative HPF (Negative) 12/25/18 10:27 Negative HPF (Negative) 12/25/18 10:27 Negative LPF (Negative) 12/25/18 10:27 Trace (Negative) 12/25/18 10:27 Negative (Negative) 12/25/18 10:27 Ur Culture Indicated? No 12/25/18 10:27 Negative mg/dL (Negative) 12/25/18 10:27 Negative (Negative) 12/25/18 10:27 Negative (Negative) 12/25/18 10:27 Ur Barbiturates Screen Negative (Negative) 12/25/18 10:27 Ur Tricyclics Screen Negative (Negative) 12/25/18 10:27 Ur Amphetamines Screen Negative (Negative) 12/25/18 10:27 U Benzodiazepines Scrn Negative (Negative) 12/25/18 10:27 Negative (Negative) 12/25/18 10:27 Ur THC Screen Positive (Negative) 12/25/18 10:27
== END 2018-12-25 19:18 | disposition left against medical advice (07) ==
LOC: ER 13:24 → MS 14:33
PROVIDERS: Admitting Provider Internal Medicine; Emergency Provider Physician Assistant; PCP General Practice; Visit Provider Internal Medicine
DX: S20.219A Contusion of unspecified front wall of thorax, initial encounter (principal); E87.2 Acidosis; R25.1 Tremor, unspecified; X58.XXXA Exposure to other specified factors, initial encounter
CPT/HCPCS: 36415; 71275; 80053; 80307; 81025; 86141; 87040; 96361; 96365; 99219; 99285; NC; 81003; 81015; 83605; 84484; 85025; 85610; 85730; 86140; 99284; G0378; J0131; J1200; J1885; J2405; J2543; J3490

== ENCOUNTER 2018-12-26 16:03 | Outpatient (REF) | payer MEDICAID, SELFPAY | END 2018-12-26 16:23 | LOC: LBN 16:03 | PROVIDERS: PCP General Practice; Visit Provider Surgery | DX: L02.213 Cutaneous abscess of chest wall (principal) | CPT/HCPCS: 87070; 87205 ==

== ENCOUNTER 2019-04-21 10:59 | Emergency (ER) | payer MEDICAID, SELFPAY ==
[2019-04-21 11:02] VITALS: BP 140/101; PULSE 90; RESP 16; TEMP 36.7; O2SAT 100
--- NOTE | 2019-04-21 11:11 | ED.GENADUL_ITS ---
Discharge Plan Disposition Patient Disposition: HOME Condition: Stable Discharge Details Chief Complaint: GenMedical Clinical Impression: Flu-like symptoms, CAP (community acquired pneumonia) Primary Care Provider: Zoltan Mireles ED Provider: Tate Armenta Home Meds and New Rx's Prescriptions: No Action docusate sodium 100 mg capsule 100 mg PO BID PRNRF: 0 Mirena 1 EACH intrauterine device 1 ea Intrauterine ONCE Qty: 1 RF: 0 Botox 100 UNIT recon soln 100 unit IJ every 3 months RF: 0 VITAMIN D3 1,000 UNIT capsule 1,000 unit PO DAILY RF: 0 acetaminophen [Tylenol] 325 MG tablet 325 mg PO Q4H PRN PRNRF: 0 ibuprofen [IBU] 600 mg tablet 600 mg PO QID PRN (Reason: pain) Qty: 14 RF: 0 Discharge Instructions Instructions: Influenza (ED), Community Acquired Pneumonia (ED) Additional Instructions: At this time you have mild pneumonia. I do not feel that this is the initial cause of the symptoms but now a result of your illness. He know the flu test is negative I feel that your signs and symptoms are clinically consistent with influenza. Please take the antibiotic for your pneumonia. Please drink plenty of fluids, get plenty of rest, and take 800 mg of ibuprofen every 6 hours and 1000 mg of Tylenol every 6 hours with your symptoms. If you notice any worsening of your symptoms, or any new symptoms such as vomiting, diarrhea, fever, chills, shortness of breath, chest pain, numbness, weakness, or fainting , please return immediately to the emergency department for reevaluation. Please follow up with your primary care provider as soon as possible for reassessment and reevaluation. As always, it was a pleasure participating in your medical care today. Stand Alone Forms: Work Release Referrals: Zoltan Mireles MD [Primary Care Provider] - Discharge Data Discharge Date/Time-TO BE ENTERED AT DEPARTURE: 04/21/19 18:55 Medical Decision Making <Shilpa Albright MD - Last Filed: 05/02/19 08:36> Catarina Lynn is a 53-year-old woman with a history of migraine headaches who presented to the emergency department with cough, sore throat, chest pain, body aches for 5 to 6 days. On exam patient appears mildly uncomfortable but acutely nontoxic. Mild erythema of the posterior pharynx without edema, exudate, or lesion. Handling secretions without issue. Diffuse mild expiratory wheeze throughout on auscultation. Benign cardiac exam. Concern for influenza, pneumonia, other viral respiratory infection, possible reactive airway disease component, dehydration, possible metabolic/electrolyte derangement. Doubt ACS, pulmonary embolism. Exam/history is not consistent with acute aortic etiology, meningitis, sepsis. Plan for EKG, chest x-ray, screening labs, flu swab, UA, IV fluid hydration. Will monitor and reassess. Flu negative. Chest x-ray negative. Labs nondiagnostic upon review. Patient with minimal improvement in expiratory wheeze after DuoNeb. Patient reports that she her shortness of breath feels unchanged. Patient finished 1 L of fluid, no change in her symptoms. Repeat DuoNeb with no change in lung sounds on auscultation. Patient given prednisone, doxycycline for possible occult pneumonia. Plan for CT chest at this time for rule out PE, occult pneumonia. Contrast dye allergy noted in patient's chart. Patient reports that she believes this was put into her chart in error. Patient had CT with contrast 12/16. Patient reports that during that visit she was given morphine and developed hives. Patient reports that she does not feel that hives occurred after her CT scan during that visit. Events surrounding medication administration and episode of hives are not clear after record review. Plan for Benadryl administration prior to CTA. Patient signed out to Dr. Armenta at time shift change with CTA pending. Medical Records Medical records reviewed: Yes I reviewed the patient's medical records. Imaging Data Radiologic Study: Attestation: I personally reviewed and interpreted this imaging study as follows: Radiologist's impression: EXAM: XR CHEST 2V PA LATERAL INDICATION: cough. COMPARISON: XR CHEST 2V PA LATERAL from 05/24/2018 TECHNIQUE: 2D digital imaging was performed. FINDINGS: Heart size and pulmonary vasculature are within normal limits. The lungs are clear. No effusion or pneumothorax is identified. Age-appropriate degenerative changes are seen in the spine. IMPRESSION: No acute pulmonary process. Lab Data Lab results reviewed: Yes I reviewed the patient's lab results. Labs: 04/21/19 11:05 Nasopharynx Influenza Types A,B Antigen - Final Laboratory Tests Range/Units 04/21/19 04/21/19 04/21/19 12:10 12:10 12:10 WBC (4.4-10.8) k/cumm 6.66 RBC (4.00-5.20) m/cumm 4.83 Hgb (12.0-15.5) g/dL 14.5 Hct (36.0-46.0) % 43.3 MCV (80-95) fL 89.6 MCH (27.0-33.0) pg 30.0 MCHC (32.0-36.0) g/dL 33.5 RDW (11.7-14.6) % 12.7 Plt Count (130-400) x1000/uL 250 MPV (8.0-11.0) fL 8.7 Immature Gran % 0.2 Neutrophils % 26.2 Lymphocytes % 65.0 Monocytes % 6.9 Eosinophils % 1.4 Basophils % 0.3 Absolute Neutrophils (1.2-6.7) k/cumm 1.75 Absolute Lymphocytes (1.2-3.4) k/cumm 4.33 H Absolute Monocytes (0.11-0.7) k/cumm 0.46 Absolute Eosinophils (0.0-0.7) k/cumm 0.09 Absolute Basophils (0.0-0.2) k/cumm 0.02 Sodium (136-145) mmol/L 142 Potassium (3.5-5.1) mmol/L 3.9 Chloride (98-107) mmol/L 106 Carbon Dioxide (21.0-32.0) mmol/L 27.4 Anion Gap (3-11) mmol/L 8.6 BUN (7-18) mg/dL 9 Creatinine (0.55-1.02) mg/dL 0.57 Estimated GFR/1.73 m2 (mL/min/1.73m2) >= 60.00 Glucose (74-106) mg/dL 94 Lactate (0.6-1.4) mmol/L 0.9 Calcium (8.5-10.1) mg/dL 9.3 Total Bilirubin (0.2-1.0) mg/dL 0.4 AST (15-37) U/L 33 ALT (14-59) U/L 37 Alkaline Phosphatase (46-116) U/L 92 Troponin I (<0.06) ng/Ml < 0.05 Total Protein (6.4-8.2) g/dL 7.6 Albumin (3.4-5.0) g/dL 3.9 Urine Color (Yellow) Urine Clarity (Clear) Urine pH (5-8) Ur Specific [place] (1.005-1.025) Urine Protein (Negative) mg/dL Urine Ketones (Negative) mg/dL Urine Blood (Negative) Urine Nitrite (Negative) Urine Bilirubin (Negative) Urine Urobilinogen (Up TO 0.2) EU/dL Ur Leukocyte Esterase (Negative) Urine RBC (0-2) HPF Urine WBC (0-5) HPF Ur Epithelial Cells (Negative) HPF Urine Crystals (Negative) HPF Urine Bacteria (Negative) HPF Urine Casts (Negative) LPF Urine Mucus (Negative) Ur Culture Indicated? Urine Glucose (Negative) mg/dL Range/Units 04/21/19 12:15 WBC (4.4-10.8) k/cumm RBC (4.00-5.20) m/cumm Hgb (12.0-15.5) g/dL Hct (36.0-46.0) % MCV (80-95) fL MCH (27.0-33.0) pg MCHC (32.0-36.0) g/dL RDW (11.7-14.6) % Plt Count (130-400) x1000/uL MPV (8.0-11.0) fL Immature Gran % Neutrophils % Lymphocytes % Monocytes % Eosinophils % Basophils % Absolute Neutrophils (1.2-6.7) k/cumm Absolute Lymphocytes (1.2-3.4) k/cumm Absolute Monocytes (0.11-0.7) k/cumm Absolute Eosinophils (0.0-0.7) k/cumm Absolute Basophils (0.0-0.2) k/cumm Sodium (136-145) mmol/L Potassium (3.5-5.1) mmol/L Chloride (98-107) mmol/L Carbon Dioxide (21.0-32.0) mmol/L Anion Gap (3-11) mmol/L BUN (7-18) mg/dL Creatinine (0.55-1.02) mg/dL Estimated GFR/1.73 m2 (mL/min/1.73m2) Glucose (74-106) mg/dL Lactate (0.6-1.4) mmol/L Calcium (8.5-10.1) mg/dL Total Bilirubin (0.2-1.0) mg/dL AST (15-37) U/L ALT (14-59) U/L Alkaline Phosphatase (46-116) U/L Troponin I (<0.06) ng/Ml Total Protein (6.4-8.2) g/dL Albumin (3.4-5.0) g/dL Urine Color (Yellow) Yellow Urine Clarity (Clear) Sl cloudy Urine pH (5-8) 6.0 Ur Specific [place] (1.005-1.025) 1.025 Urine Protein (Negative) mg/dL Trace H Urine Ketones (Negative) mg/dL Trace H Urine Blood (Negative) Trace-lysed H Urine Nitrite (Negative) Negative Urine Bilirubin (Negative) Small H Urine Urobilinogen (Up TO 0.2) EU/dL 0.2 Ur Leukocyte Esterase (Negative) Negative Urine RBC (0-2) HPF 0-2 Urine WBC (0-5) HPF 0-2 Ur Epithelial Cells (Negative) HPF Few Urine Crystals (Negative) HPF Negative Urine Bacteria (Negative) HPF Moderate Urine Casts (Negative) LPF Negative Urine Mucus (Negative) Moderate Ur Culture Indicated? No Urine Glucose (Negative) mg/dL Negative ECG Data Attestation: I personally reviewed and interpreted this ECG (s) as follows: Interpretation: EKG shows sinus rhythm at 78, normal axis, no acute ischemic changes, nondiagnostic EKG <Tate Armenta, DO - Last Filed: 04/21/19 18:59> Case was signed out to me by my colleague Dr.Kara Albright,please refer to her [facility] physical exam assessment and plan. At time of signout we are pending CTA of the chest. Dr. Albright felt that the patient's symptoms were likely secondary to influenza even though the patient's influenza test was negative. Laboratory work-up was notably unremarkable, urinalysis shows no evidence of infection. Chest x-ray was negative but the patient symptoms were concerning and a CTA was ordered. Patient does have a convoluted history of potential allergy, Benadryl was given prior to CTA administration. Patient had CTA with no complications, no allergic reaction, and at time of reassessment and disposition patient had no rash difficulty breathing or other complaints. CT scan results demonstrate no evidence of PE, however there is evidence of pneumonia. We will treat with Augmentin. We will give first dose here as well as a pill to go home with in addition to the prescription. Patient is out of the range for Tamiflu. Recommend continued fluids at home, Tylenol and Motrin, and close follow-up with her PCP. Patient remains hemodynamically stable, shows no clinical evidence of meningitis, respiratory depression, or sepsis. I have extensively reviewed the treatment plan and discharge instructions with the patient and their family. I have addressed all patient concerns at this time. The patient and family was made aware of what symptoms to monitor for that would warrant a return to the emergency department. Discussed the plan with the patient and family, they demonstrate verbal understanding and agreement with our assessment and plan at this time. Antibiotic choice: We have chosen to give Augmentin here for the patient's pneumonia. Recent resistant pattern studies from our hospital as well as other local facilities in [facility] have both demonstrated significant resistance to azithromycin, and notable susceptibility to common community- acquired pneumonia organisms for both amoxicillin, and Augmentin. FINDINGS: Tubes, catheters and devices: Small area of focal enhancement within the dome of the liver, 7 mm, vascular shunt versus flash filling hemangioma. Pulmonary arteries: No pulmonary emboli. Aorta: No aortic aneurysm. No aortic dissection. Lungs: Nonspecific bilateral dependent pleuroparenchymal changes in the lungs. Several small illdefined nodular opacities within the right upper lobe, either present spectrum of bronchiolitis. Patchy air space opacities within the right middle lobe, cannot rule out bronchiolitis and/or developing infiltrate. Similar findings within the right lower lobe, image 317, possible airspace disease. Pleural space: No pneumothorax. No pleural effusion. Heart: No cardiomegaly. No pericardial effusion. Lymph nodes: Unremarkable. No enlarged lymph nodes. Bones/joints: Mild degenerative changes within thoracic and lumbar spine, small sclerotic foci within vertebral bodies, degenerative changes and/or bone islands. Soft tissues: Unremarkable. IMPRESSION: No pulmonary emboli. Focal areas of likely airspace disease within right lung, bronchiolitis and/or developing pneumonia infiltrates. Thank you for allowing us to participate in the care of your patient. Dictated and Authenticated by: Tae Santillan MD HPI <Shilpa Albright MD - Last Filed: 05/02/19 08:36> General Mode of arrival: ambulatory . Date/Time Provider Initiated Documentation: 04/21/19 11:11 . Limitations to Documentation: no limitations . Information obtained by: patient, RN notes reviewed and old records reviewed . HPI Narrative: Catarina Lynn is a 53 y/o woman with history of migraine headaches presenting to the emergency department with cough, sore throat. Patient reports that for approximately 6 days ago she developed sore throat and headache. Headache resolved after 1 day, but she then developed body aches, nasal congestion, and productive cough. Patient reports that cough and sore throat have continued, not worsening or improving. She also has continued body aches. Patient reports that she has also had chest pain for the past 5 days or so, which seem to start with coughing but has now become constant. Pain is worse with coughing. Unchanged by exertion, rest, deep breathing. Patient reports mild shortness of breath that is worse with exertion and not present at rest. She denies any other pain, denies fevers, vomiting, diarrhea, rash, numbness, focal weakness. No recent travel. Patient reports that she has had decreased appetite and has not been drinking as much as usual. She states that she thinks she only drank 20 ounces of fluid yesterday secondary to feeling generally unwell and lack of appetite. Related Data Home Medications Medication Instructions Recorded Confirmed Mirena 1 ea INTRAUTERINE ONCE #1 implant 05/03/15 04/21/19 Botox 100 unit IJ every 3 months vial 10/07/15 04/21/19 Vitamin D3 1,000 unit PO DAILY 10/21/15 04/21/19 acetaminophen [Tylenol] 325 mg PO Q4H PRN PRN tab 12/26/16 04/21/19 ibuprofen [IBU] 600 mg PO QID PRN #14 tab 01/27/18 04/21/19 docusate sodium 100 mg capsule 100 mg PO BID PRN 04/15/18 04/21/19 Previous Rx's Medication Instructions Recorded acetaminophen [Tylenol] 325 mg PO Q4H PRN PRN tab 12/26/16 ibuprofen [IBU] 600 mg PO QID PRN #14 tab 01/27/18 Allergies Allergy/AdvReac Type Severity Reaction Status Date / Time Iodinated Contrast Media Allergy Skin Rash Verified 12/26/18 15:13 morphine AdvReac Skin Rash Verified 12/26/18 15:13 General Stated Complaint: GenMedical SHANIKA: 3 Review of Systems <Shilpa Albright MD - Last Filed: 05/02/19 08:36> Narrative: Constitutional: denies fevers, reports decreased appetite Eyes: denies eye pain ENT: denies ear pain, dental pain, sore throat Cardiovascular: Reports chest pain Respiratory: Reports mild SOB, productive cough cough GI: denies abdominal pain, vomiting, diarrhea : denies flank pain MSK: denies back pain, neck pain, reports generalized arthralgias, myalgias Skin: denies rash Neuro: denies headaches, numbness PFSH <Shilpa Albright MD - Last Filed: 05/02/19 08:36> Medical History Arthritis of carpometacarpal (CMC) joint of right thumb (Acute) Arthritis of hand (Acute) Arthritis of hand, degenerative (Acute) Bilateral carpal tunnel syndrome (Acute 11/06/16) Bleeding external hemorrhoids (Resolved) Chronic anal fissure (Acute) Chronic migraine (Chronic) Complex regional pain syndrome affecting both upper arms (Acute 01/24/17) Family history of colon cancer (Acute) History of hemorrhoids (Resolved) Internal derangement of right knee (Acute 05/02/17) Internal hemorrhoids (Resolved) IUD surveillance (Acute) Migraine with aura (Acute 12/04/13) Premenopausal menorrhagia (Resolved) 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) Skin lesion of chest wall (Acute) 12/26/[address] Vane Retana Surgical History Colonoscopy - IV Sedation (~2012) History of bilateral carpal tunnel release (Acute) History of hemorrhoidectomy (Chronic) L shoulder surgery S/P Botox injection (Acute) S/P colonoscopy (Acute ~05/07/18) Social History Smoking/Tobacco Use Status: Former Tobacco Use Quit Date: 04/30/90 Alcohol Intake: current Alcohol Intake frequency: holidays/special occasions only Alcohol type: beer and wine Drug use: Daily Substance use type: marijuana Details: marijuana last night around 1800 Do you feel safe at home: Yes Do you feel safe in your relationship?: Yes Exam <Shilpa Albright MD - Last Filed: 05/02/19 08:36> Narrative Exam Narrative: Constitutional: well and [id number], pleasant, conver sing normally HENT: head atraumatic/normocephalic/normal inspection, mucous membranes moist Eyes: conjunctiva normal, sclera normal, pupils 3mm b/l Neck: no stridor, normal ROM, trachea midline Chest: normal inspection Resp: normal work of breathing, LCTAB Cardio: normal rate, normal rhythm, no murmur appreciated GI: abdomen soft, non-tender, non-distended Back: normal inspection, no rash Skin: warm, dry, normal color, no rash Neuro: alert, not altered, grossly non-focal, normal tone Ext: no edema Psych: normal mood, normal affect, normal behavior Course <Shilpa Albright MD - Last Filed: 05/02/19 08:36> Vital Signs Vital signs: Vital Signs Temperature 36.7 C 04/21/19 11:02 Pulse 90 04/21/19 11:02 Respiratory Rate 16 04/21/19 11:02 Blood Pressure 140/101 H 04/21/19 11:02 Pulse Oximetry 100 04/21/19 11:02 Temperature 36.7 C 04/21/19 11:02 Temperature Source Temporal Artery Scan 04/21/19 11:02 Pulse 90 04/21/19 11:02 Respiratory Rate 16 04/21/19 11:02 Blood Pressure 140/101 H 04/21/19 11:02 Pulse Oximetry 100 04/21/19 11:02 Oxygen Delivery Method Room Air 04/21/19 11:02 Oxygen Flow Rate 0 04/21/19 11:02 Pain Level 9 04/21/19 11:02 Lab/Test Results Lab/Test Results: 04/21/19 11:08 Nasopharynx Influenza Types A,B Antigen - Pending Sign Out <Shilpa Albright MD - Last Filed: 05/02/19 08:36> Sign Out Data: Sign Out Comment: Patient signed out to Dr. Armenta at time of shift change with CT chest, reassessment pending Last updated by Shilpa Albright MD at 04/21/19 17:18
[2019-04-21 12:14] LABS: Lactate 0.9 mmol/L (0.6-1.4)
[2019-04-21] MEDS: Normal Saline 1,000 ML 1000 ML IV (12:15)
[2019-04-21 12:22] LABS: Abs Immature Grans 0.01 k/cumm (0.0-0.09); Absolute Basophil Count 0.02 k/cumm (0.0-0.2); Absolute Eosinophil Count 0.09 k/cumm (0.0-0.7); Absolute Lymphocyte Count 4.33 k/cumm (1.2-3.4); Absolute Monocyte Count 0.46 k/cumm (0.11-0.7); Absolute Neutrophil Count 1.75 k/cumm (1.2-6.7); Basophils % 0.3; Eosinophils % 1.4; HCT 43.3 % (36.0-46.0); HGB 14.5 g/dL (12.0-15.5); Immature Grans % 0.2; Mean Corp. HGB Concentration 33.5 g/dL (32.0-36.0); Mean Corpuscular Volume 89.6 fL (80-95); Mean Platelet Volume 8.7 fL (8.0-11.0); Monocytes % 6.9; Neutrophils % 26.2; Platelet Count 250 x1000/uL (130-400); RBC 4.83 m/cumm (4.00-5.20); RBC Distribution Width 12.7 % (11.7-14.6); White Blood Cell Count 6.66 k/cumm (4.4-10.8)
[2019-04-21 12:24] LABS: Bilirubin Small (Negative); Blood Trace-lysed (Negative); Clarity Sl Cloudy (Clear); Glucose Negative (Negative); Ketones Trace mg/dL (Negative); Leukocyte Esterase Negative (Negative); Nitrite Negative (Negative); Specific Gravity 1.025 (1.005-1.025); Urobilinogen 0.2 EU/dL (Up TO 0.2)
[2019-04-21] MEDS: Normal Saline Flush 10 ML SYR IVP (12:26)
[2019-04-21] MEDS: Albuterol/Ipratropium 3 ML UPD VIAL UPD ×2 (12:26→15:08)
[2019-04-21 12:34] LABS: ALT 37 U/L (14-59); AST 33 U/L (15-37); Albumin 3.9 g/dL (3.4-5.0); Alkaline Phosphatase 92 U/L (46-116); Anion Gap 8.6 mmol/L (3-11); BUN 9 mg/dL (7-18); Bilirubin, Total 0.4 mg/dL (0.2-1.0); CO2 27.4 mmol/L (21.0-32.0); CREATININE 0.57 mg/dL (0.55-1.02); Calcium 9.3 mg/dL (8.5-10.1); Chloride 106 mmol/L (98-107); Glucose 94 mg/dL (74-106); Potassium 3.9 mmol/L (3.5-5.1); Sodium 142 mmol/L (136-145); Total Protein 7.6 g/dL (6.4-8.2)
[2019-04-21 12:37] LABS: Bacteria Moderate HPF (Negative); C & S Indicated? No; Casts Negative LPF (Negative); Crystals Negative HPF (Negative); Epithelial Cells Few HPF (Negative); Mucus Moderate (Negative); RBC 0-2 HPF (0-2); WBC 0-2 HPF (0-5)
[2019-04-21 12:39] LABS: Troponin I < 0.05 ng/Ml (<0.06)
--- NOTE | 2019-04-21 12:50 | DI.RAD_ITS ---
EXAM: XR CHEST 2V PA LATERAL INDICATION: cough. COMPARISON: XR CHEST 2V PA LATERAL from 05/24/2018 TECHNIQUE: 2D digital imaging was performed. FINDINGS: Heart size and pulmonary vasculature are within normal limits. The lungs are clear. No effusion or pneumothorax is identified. Age-appropriate degenerative changes are seen in the spine. IMPRESSION: No acute pulmonary process.
[2019-04-21 12:56] VITALS: RESP 16; RESP 5
[2019-04-21] MEDS: predniSONE 20 MG TAB 60 MG PO (15:08)
[2019-04-21] MEDS: Doxycycline Hyclate 100 MG CAP PO (15:08)
[2019-04-21 15:35] VITALS: BP 139/79; PULSE 82; RESP 16; TEMP 37.3; O2SAT 94
[2019-04-21 15:38] VITALS: RESP 5
--- NOTE | 2019-04-21 16:19 | DI.CT_ITS ---
EXAM: CT CHEST PE CTA CLINICAL HISTORY: SOB TECHNIQUE: Imaging Protocol: Axial CT angiography was performed with multi-slice acquisition and mu lti-planar and/or 3D reconstructions. CONTRAST MATERIAL: Intravenous: Omnipaque 350 Contrast volume:100 mL contrast route:IV - Oral:No COMPARISON: CT CHEST PE CTA from 12/25/2018 FINDINGS: Pulmonary Arteries: No evidence of filling defect to suggest pulmonary emboli. Tracheobronchial tree: Patent where visualized. Mediastinum and Shari: No dominant adenopathy or fluid collection. Pulmonary parenchyma: Nodular infiltrates are seen in the right upper, right middle and right lower l obes. There is a dependent infiltrate in the right lung base. This may represent atelectasis or pne umonia. Pleura: No effusion or pneumothorax. Heart/Aorta: No evidence of thoracic aortic aneurysm or dissection. The heart is not dilated. No per icardial effusion or right heart strain. No coronary artery calcifications. Upper abdomen: Small focal enhancement in the dome of the liver measuring 7 millimeters. This may r epresent a vascular shunt or hemangioma. Bones: Degenerative changes are seen in the spine. Small bone islands are seen IMPRESSION: 1. No evidence of pulmonary embolus, thoracic aortic dissection or aneurysm. 2. Airspace opacities in the right lung suspicious for pneumonia. DATA REPOSITORY: All CT scans at this facility are submitted to the National Radiology Data Registry (NRDR) Dose Index Registry (DIR) with the [employer] (ACR). RADIATION OPTIMIZATION: All CT scans at this facility use at least one of these dose optimization te chniques: automated exposure control; mA and/or kV adjustment per patient size (includes targeted exa ms where dose is matched to clinical indication); or iterative reconstruction.
[2019-04-21 16:35] VITALS: BP 143/82; PULSE 88; RESP 18; TEMP 36.7; O2SAT 96
[2019-04-21] MEDS: diphenhydrAMINE 50 MG/ML VIAL IVP (16:41)
[2019-04-21] MEDS: Ketorolac 15 MG/ML VIAL IVP (17:37)
[2019-04-21] MEDS: Omnipaque 350 MG/ML 100 ML BTL IJ (17:49)
--- NOTE | 2019-04-21 18:23 | DI.VRAD_ITS ---
PROCEDURE INFORMATION: Exam: CT Angiography Chest With Contrast Exam date and time: 04/21/2019 3:22 PM Age: 53 years old Clinical indication: Shortness of breath TECHNIQUE: Imaging protocol: Computed tomographic angiography of the chest with intravenous contrast. 3D rendering: MIP and/or 3D reconstructed images were created by the technologist. Other contrast: Route: Catheter; COMPARISON: CT CHEST PE CTA 12/25/2018 10:49 AM FINDINGS: Tubes, catheters and devices: Small area of focal enhancement within the dome of the liver, 7 mm, vascular shunt versus flash filling hemangioma. Pulmonary arteries: No pulmonary emboli. Aorta: No aortic aneurysm. No aortic dissection. Lungs: Nonspecific bilateral dependent pleuroparenchymal changes in the lungs. Several small ill-defined nodular opacities within the right upper lobe, either present spectrum of bronchiolitis. Patchy air space opacities within the right middle lobe, cannot rule out bronchiolitis and/or developing infiltrate. Similar findings within the right lower lobe, image 317, possible airspace disease. Pleural space: No pneumothorax. No pleural effusion. Heart: No cardiomegaly. No pericardial effusion. Lymph nodes: Unremarkable. No enlarged lymph nodes. Bones/joints: Mild degenerative changes within thoracic and lumbar spine, small sclerotic foci within vertebral bodies, degenerative changes and/or bone islands. Soft tissues: Unremarkable. IMPRESSION: No pulmonary emboli. Focal areas of likely airspace disease within right lung, bronchiolitis and/or developing pneumonia infiltrates. Dictated and Authenticated by: Tae Santillan MD. Ordering:MAXIMINO Massey MD
[2019-04-21 18:49] VITALS: BP 149/94; PULSE 88; RESP 16; TEMP 36.6; O2SAT 96
[2019-04-21] MEDS: Amox. 875/Clav. 125, 2 TABS/BTL 1 TAB PO (18:49)
== END 2019-04-21 18:55 | disposition home or self-care (01) ==
PROVIDERS: Student in an Organized Health Care Education/Training Program; Emergency Provider Student in an Organized Health Care Education/Training Program; PCP General Practice
DX: J11.00 Influenza due to unidentified influenza virus with unspecified type of pneumonia (principal); M79.10 Myalgia, unspecified site; R51 Headache; J02.9 Acute pharyngitis, unspecified
CPT/HCPCS: 36415; 71275; 80053; 87449; 93005; 94640; 96361; 96374; 96375; 99285; 71046; 81003; 81015; 83605; 84484; 85025; 93010; 99284; J1200; J1885; J3490; J7512; J7620

== ENCOUNTER 2019-07-16 15:11 | Outpatient (CLI) | payer MEDICAID, SELFPAY ==
[2019-07-21 12:04] LABS: COVID-19 RT-PCR Result Not Detected (NotDetected)
== END 2019-07-16 15:31 ==
PROVIDERS: PCP General Practice; Visit Provider Physician Assistant
DX: Z20.828 Contact with and (suspected) exposure to other viral communicable diseases (principal); R05 Cough
CPT/HCPCS: U0003

== ENCOUNTER 2019-11-12 11:33 | Outpatient (REF) | payer MEDICAID, SELFPAY ==
[2019-11-12 12:18] LABS: Clarity Clear
[2019-11-12 12:49] LABS: Mononuclear Cells 75 % (0-0); Nucleated Cells 478 /MM3 (0-0); Polynuclear Cells 25 % (0-0)
[2019-11-12 12:51] LABS: Crystals (BF) No Crystals seen
== END 2019-11-12 11:53 ==
LOC: NCHCN 11:33
PROVIDERS: PCP Nurse Practitioner Family; Visit Provider Nurse Practitioner Family
DX: M25.562 Pain in left knee (principal)
CPT/HCPCS: 87070; 87205; 89051; 89060

== ENCOUNTER 2019-11-13 09:44 | Outpatient (CLI) | payer MEDICAID, SELFPAY ==
--- NOTE | 2019-11-13 | DI.MAMMO_ITS ---
EXAM: MG MAMMO SCREENING CLINICAL HISTORY: SCREENING, Z00.00, PREVENTATIVE HEALTH CARE TECHNIQUE: Mammograms were interpreted according to the usual protocol including computer analysis w [employer] CAD system, tomosynthesis and C-view imaging. COMPARISON: FINDINGS: The breasts are of moderate density with fairly symmetrical distribution of fibroglandular tissue. N o dominant mass or clumped microcalcification is identified in either breast. The current examinatio n is compared with previous examinations including October 2018 and there has been no gross interval elizabeth nge in appearance in comparison with the prior studies. IMPRESSION: No specific evidence of malignancy at this time. Routine screening examinations are suggested at yea rly intervals due to the family history of breast carcinoma. BI-RADS Category 1 - Negative Breast Density - Category B - Scattered areas of fibroglandular density
== END 2019-11-13 10:04 ==
PROVIDERS: PCP Nurse Practitioner Family; Visit Provider Nurse Practitioner Family
DX: Z12.31 Encounter for screening mammogram for malignant neoplasm of breast (principal); Z80.3 Family history of malignant neoplasm of breast
CPT/HCPCS: 77063; 77067

== ENCOUNTER 2019-12-15 14:45 | Outpatient (CLI) | payer MEDICAID, SELFPAY ==
--- NOTE | 2019-12-15 14:50 | DI.RAD_ITS ---
EXAM: XR KNEE LT 3V AP,LAT,KEVIN CLINICAL HISTORY: L knee pain. TECHNIQUE: 2D digital imaging was performed. COMPARISON: MR MRI R LOWER JOINT WO CONT from 05/24/2017 FINDINGS: BONES: No acute fracture is present. No bony destructive lesion is seen. JOINTS: The knee is normally aligned. No joint effusion is seen. SOFT TISSUE: Normal. IMPRESSION: Normal radiographs of the left knee. DATA REPOSITORY: RADIATION DOSE DELIVERED:
== END 2019-12-15 15:05 ==
PROVIDERS: PCP Nurse Practitioner Family; Referring Provider Nurse Practitioner Family; Visit Provider Physician Assistant
DX: M25.562 Pain in left knee (principal)
CPT/HCPCS: 73562

== ENCOUNTER 2019-12-22 00:39 | Outpatient (CLI) | payer MEDICAID, SELFPAY ==
--- NOTE | 2019-12-22 08:45 | DI.MRI_ITS ---
EXAM: MR LOWER JOINT LT WO CLINICAL HISTORY: R/O MENISCUS TEAR,LT KNEE PAIN,INTERNAL DERANGEMENT,M23.92,M25.562. TECHNIQUE: Multiplanar multisequence MRI was performed. COMPARISON: MR MRI R LOWER JOINT WO CONT from 05/24/2017 FINDINGS: MR examination of the knee was performed according to the usual protocol. The examination is limited technical quality due to persists cyst in involuntary motion by the patient. There is a moderate sized knee joint effusion. Bones: No significant bony signal abnormality seen. Patellofemoral joint and extensor mechanism: Articular cartilage of the patellofemoral joint appears fairly well preserved and shows normal signal. Retinacular structures appear intact. Quadriceps and patellar tendons appear normal. Mildly abnormal signal in Hoffa fat pad, nonspecific. Unremarkable appearance of suprapatellar fat pads. Mildly increased signal in subcutaneous fat anterior to maguire lar tendon, nonspecific. Medial tibiofemoral joint: Poor visualization medial meniscus, there is abnormal signal in body and p osterior horn of the medial meniscus without a confirmed tear. Probable articular cartilage thinning of femoral and tibial articular cartilage, motion limited evaluation. No gross medial collateral li gament injury. Lateral tibiofemoral joint: Poor visualization of lateral meniscus, no gross tear. No significant co llateral ligament or posterolateral corner injury. Probable mild thinning articular cartilage of the lateral tibiofemoral joint Cruciate ligaments: No evidence of cruciate ligament tear. Mildly abnormal signal of PCL femoral att achment, possible strain. IMPRESSION: Examination was significantly limited by motion artifact. Menisci are poorly visualized, abnormal m eniscal signal without a confirmed meniscal tear. Moderate-sized joint effusion noted. DATA REPOSITORY:
== END 2019-12-22 00:59 ==
PROVIDERS: PCP Nurse Practitioner Family; Visit Provider Student in an Organized Health Care Education/Training Program
DX: M25.462 Effusion, left knee (principal); M25.562 Pain in left knee
CPT/HCPCS: 73721

== ENCOUNTER 2020-01-26 07:21 | Outpatient (CLI) | payer MEDICAID, SELFPAY ==
[2020-01-27 17:24] LABS: COVID-19 RT-PCR Result NEGATIVE (Negative)
== END 2020-01-26 07:41 ==
PROVIDERS: PCP Nurse Practitioner Family; Visit Provider Student in an Organized Health Care Education/Training Program
DX: Z11.59 Encounter for screening for other viral diseases (principal); Z01.818 Encounter for other preprocedural examination
CPT/HCPCS: U0003

== ENCOUNTER 2020-01-28 09:17 | Day surgery (SDC) | payer MEDICAID, SELFPAY ==
[2020-01-28] VITALS (9 sets, daily range): BP systolic 79–123; BP diastolic 42–76; PULSE 54–84; RESP 12–18; TEMP 36.4–37; O2SAT 90–96
[2020-01-28] MEDS: Lactated Ringers 1,000 ML 80 ML IV ×2 (10:05→11:47)
--- NOTE | 2020-01-28 10:32 | W.PM.DSUDISC ---
Discharge Plan Disposition Patient Disposition: HOME Condition: Good Discharge Details Reason For Visit: KNEE ARTHROCOPY Attending Provider: Russ Pelaez Primary Care Provider: Juice Astorga Home Meds and New Rx's Prescriptions: New acetaminophen 500 mg tablet 500 mg PO Q6H PRN PRN (Reason: pain) Qty: 40 RF: 3 ibuprofen 600 mg tablet 600 mg PO TID PRNQty: 90 RF: 3 hydrocodone-acetaminophen 5-325 mg tablet 1 tab PO Q4H PRN (Reason: pain) Qty: 14 RF: 0 Continued docusate sodium 100 mg capsule 100 mg PO BID PRNRF: 0 Mirena 1 EACH intrauterine device 1 ea Intrauterine ONCE Qty: 1 RF: 0 Botox 100 UNIT recon soln 100 unit IJ every 3 months RF: 0 Discontinued VITAMIN D3 1,000 UNIT capsule 1,000 unit PO DAILY RF: 0 acetaminophen [Tylenol] 325 MG tablet 325 mg PO Q4H PRN PRNRF: 0 ibuprofen [IBU] 600 mg tablet 600 mg PO QID PRN (Reason: pain) Qty: 14 RF: 0 Discharge Instructions Stand Alone Forms: [facility] Knee Arthroscopy Referrals: Russ Pelaez MD [ [facility] STAFF PHYSICIAN] - Equipment/Supplies: Partial Weight Bearing Crutches Activity:: Elevate Remove Dressings/Wound Care:: 72 hours Shower/Bathe:: 72 hours Diet:: As Tolerated Discharge Orders Discharge Orders: Discharge Order (Routine); Ordered 01/28/20 Ordered By: Russ Pelaez DS: Diagnosis Discharge Diagnosis (1) Tear of medial meniscus of left knee, current: Status: Acute
[2020-01-28] MEDS: ceFAZolin 2 GM/50 ML BAG IVPB (11:26)
[2020-01-28] MEDS: Bupivacaine 0.5% Pres-Free 30 ML VIAL (11:47)
--- NOTE | 2020-01-28 12:05 | W.PM.OP ---
Date of service: 01/28/20 Time of Service: 12:05 Operative Note Operative Note DATE OF PROCEDURE: 01/28/20 PRE-OP DIAGNOSIS: Left Knee Medial Meniscus Tear POST-OP DIAGNOSIS: other (Left Knee Medial and Lateral Meniscus Tear) PROCEDURE: Left Knee Arthroscopic Partial Medial and Lateral Menisectomy SURGEON: Russ Pelaez ANESTHESIA: GETA ESTIMATED BLOOD LOSS: 0 PATHOLOGY: none sent COMPLICATIONS: None Patient was transported to: PACU Patient's condition: stable Indications: I have seen Catarina in clinic for symptoms of a meniscus tear. This was confirmed based on MRI and exam findings. Nonoperative measures were exhausted but disability and pain persisted. I discussed knee arthroscopy with meniscal intervention with the patient. I reviewed the risks of the procedure to include, but not limited to, bleeding, infection, pain, stiffness, damage to nerves or vessels, recurrence, blood clot. Despite these risks, the patient elected to proceed. Findings: A diagnostic arthroscopy was performed with the following findings: Suprapatellar Pouch: No significant inflammation, No loose bodies Medial Compartment: Complex medial meniscal tear at the posterior horn, Intact meniscal root, No significant chondromalacia or signs of arthritis, No loose bodies Notch: ACL and PCL were intact Lateral Compartment: Complex tearnig of the central aspect of the root with disruption of the meniscal root, Grade I chondromalacia of the tibia, No loose bodies Patellofemoral Compartment: No significant chondromalacia, No apparent patellar maltracking Procedure Description: Catarina was greeted in the preoperative holding area where the correct side was identified and marked. The consent was reviewed with the patient and signed. The history and physical was updated. All questions were answered. She was taken back to the operating room. The patient was placed into the supine position on the operating room table. A nonsterile tourniquet was placed high onto the leg but not used. All bony prominences were well padded. Prophylactic antibiotics in the form of Cefazolin were administered. The left leg was then prepped with Chloraprep and draped in a standard fashion with stockinette and extremity drape. A timeout to confirm correct identity, side and site, procedure, allergies, anesthesia, and medical concerns was performed. The leg was placed into a pneumatic leg vee, SPIDER2. A standard lateral portal was made at the lateral border of the patella tendon in line with the inferior pole of the patella, soft spot. The skin and deep tissue was incised sharply and the blunt trochar was inserted atraumatically. A diagnostic arthroscopy was performed and the findings are listed above. The suprapatellar pouch had no significant inflammatory change. The patellofemoral articulation showed no articular damage as well as good tracking. The lateral gutter had no loose bodies and the medial gutter had no loose bodies. The knee was brought into some valgus stress in extension to open the medial compartment. A medial portal was made, localized by a spinal needle. The portal was created with an #11 blade through skin and capsule under direct visualization avoiding any meniscal injury. A probe was then inserted into the medial compartment. The medial compartment was fully inspected. The chondral surface of the tibia showed no significant chondromalacia and the surface of the femur showed no significant chondromalacia. The medial meniscus had a complex tear at the level of the posterior horn with a primary radial component but not extending to the capsular juction. After evaluation, the meniscus was debrided down to a stable base using a series of biters and arthroscopic bernabe. It was probed afterwards to confirm that the tear had been removed and the meniscus was stable. The notch was then inspected which showed an intact ACL and an intact PCL. The leg was then brought into a figure of 4 position. The lateral compartment was fully inspected with the arthroscope and a probe. The chondral surface of the lateral femur showed no significant chondromalacia. The chondral surface of the lateral tibia showed Grade I chondromalacia. The lateral meniscus had some tearing of the central portion of the lateral meniscal root but the root was intact. After evaluation, the meniscus was debrided down to a stable base using a series of biters and arthroscopic bernabe. It was probed afterwards to confirm that the tear had been removed and the meniscus was stable. The arthroscope was brought back into the suprapatellar pouch and the leg was in full extension. The knee was thoroughly irrigated with the arthroscopic fluid on high flow and pressure. Inflow was stopped and excess fluid was removed. The wounds were closed with 4-0 Nylon. They were dressed with Xeroform, 4x4 gauze, ABD pad, Kerlix and an KAVON wrap. A cryo-cuff was applied. The patient tolerated the procedure well and was returned to the Same Day Surgery area in a stable condition suffering no known complication.
[2020-01-28] MEDS: fentaNYL 100 MCG/2 ML VIAL IVP ×2 (12:35→12:45)
[2020-01-28] MEDS: HYDROcodone 5/Acetaminophen 325 TAB PO (13:41)
== END 2020-01-28 14:20 | disposition home or self-care (01) ==
PROVIDERS: PCP Nurse Practitioner Family; Visit Provider Student in an Organized Health Care Education/Training Program
PROC: (CPT 29870; principal; 2020-01-28 11:15)
DX: S83.272A Complex tear of lateral meniscus, current injury, left knee, initial encounter (principal); S83.232A Complex tear of medial meniscus, current injury, left knee, initial encounter; X58.XXXA Exposure to other specified factors, initial encounter
CPT/HCPCS: 29880; J0690; J1885; J2001; J2405; J2704; J3010

== ENCOUNTER 2021-03-09 17:24 | Outpatient (REF) | payer MEDICAID, SELFPAY ==
[2021-03-11 16:04] LABS: COVID-19 RT-PCR UVMMC Result Negative (Negative)
== END 2021-03-09 17:25 | disposition home or self-care (01) ==
LOC: LBN 17:24
PROVIDERS: PCP Nurse Practitioner Family; Visit Provider Physician Assistant Medical
DX: Z20.822 Contact with and (suspected) exposure to COVID-19 (principal); J02.9 Acute pharyngitis, unspecified
CPT/HCPCS: U0003; 87070

== ENCOUNTER 2021-04-04 22:50 | Outpatient (REF) | payer MEDICAID, SELFPAY ==
[2021-04-06 17:19] LABS: COVID-19 RT-PCR UVMMC Result Negative (Negative)
== END 2021-04-04 22:51 | disposition home or self-care (01) ==
LOC: LBN 22:50
PROVIDERS: PCP Nurse Practitioner Family; Visit Provider Nurse Practitioner Family
DX: Z20.822 Contact with and (suspected) exposure to COVID-19 (principal); J06.9 Acute upper respiratory infection, unspecified
CPT/HCPCS: U0003

== ENCOUNTER 2021-05-27 14:11 | Outpatient (REF) | payer MEDICAID, SELFPAY ==
[2021-05-29 12:14] LABS: COVID-19 RT-PCR UVMMC Result Negative (Negative)
== END 2021-05-27 14:12 | disposition home or self-care (01) ==
LOC: LBN 14:11
PROVIDERS: PCP Nurse Practitioner Family; Visit Provider Physician Assistant Medical
DX: Z20.822 Contact with and (suspected) exposure to COVID-19 (principal); R51.9 Headache, unspecified; R68.83 Chills (without fever)
CPT/HCPCS: U0003

== ENCOUNTER 2021-07-21 13:46 | Outpatient (REF) | payer MEDICAID, SELFPAY ==
--- NOTE | 2021-07-21 13:00 | PAPFT_PTH ---
PATIENT: Catarina Lynn LOC: [facility] U#:[id number] AGE/SX: 55/F ROOM: RE07/21/[address]: ELIDIA Martinez : 1965 BED: DIS: 07/21/2021 SPEC #: [id number] RECD: 07/21/21 17:29 STATUS: ARMEN REQ #: [id number] MELINA: 07/21/21 13:[address]: Kyra Murray DEPT: [facility] Cytology RECD BY: Rachele Mccray ENTERED: 07/21/21 17:29 SP TYPE: PAPFT OTHR DR: Juice Astorga Tissues: 1 - CX/ENDOCX FOR PAP SMEARS Procedures: PAP THIN PREP/UVM Screening HPV DNA PROBE Comments: [id number]
== END 2021-07-21 13:47 | disposition home or self-care (01) ==
LOC: LBN 13:46
PROVIDERS: PCP Nurse Practitioner Family; Visit Provider Nurse Practitioner Family
DX: R87.610 Atypical squamous cells of undetermined significance on cytologic smear of cervix (ASC-US) (principal); Z12.4 Encounter for screening for malignant neoplasm of cervix; Z11.51 Encounter for screening for human papillomavirus (HPV); R87.810 Cervical high risk human papillomavirus (HPV) DNA test positive
CPT/HCPCS: 88142; 87624

== ENCOUNTER 2021-07-27 01:56 | Outpatient (CLI) | payer MEDICAID, SELFPAY ==
--- NOTE | 2021-07-27 06:30 | DI.MAMMO_ITS ---
Exam(s) MAMMO SCREENING EXAM: MAMMO SCREENING CLINICAL HISTORY: screening Z12.39 TECHNIQUE: Mammograms were interpreted according to the usual protocol including computer analysis w [employer] CAD system, tomosynthesis and C-view imaging. COMPARISON: FINDINGS: The breasts are of moderate density with fairly symmetrical distribution of fibroglandular tissue. N o dominant mass or clumped microcalcification is identified in either breast. The current examinatio n is compared with multiple previous examinations including October 2019 and there is apparent interval increase in size of an area of nodularity with poorly defined borders in the upper outer quadrant of the left breast, most clearly seen on CC view. Additional mammographic views are requested along wit h breast ultrasound to evaluate these findings and exclude breast mass. No other significant change seen. IMPRESSION: Additional mammographic views of the left breast and left breast ultrasound requested as described ab gann. BI-RADS Category 0 - Assessment Incomplete: Need additional imaging evaluation Breast Density - Category B - Scattered areas of fibroglandular density
== END 2021-07-27 02:16 ==
PROVIDERS: PCP Nurse Practitioner Family; Visit Provider Nurse Practitioner Family
DX: Z12.31 Encounter for screening mammogram for malignant neoplasm of breast (principal); R92.8 Other abnormal and inconclusive findings on diagnostic imaging of breast
CPT/HCPCS: 77063; 77067

== ENCOUNTER 2021-08-03 15:52 | Outpatient (REF) | payer MEDICAID, SELFPAY ==
--- NOTE | 2021-08-03 15:00 | ENDO_PTH ---
PATIENT: Catarina Lynn LOC: [facility] U#:[id number] AGE/SX: 55/F ROOM: RE08/03/[address]: Cassandra Torres DO : 1965 BED: DIS: 08/03/2021 SPEC #: [id number] RECD: 08/03/21 17:44 STATUS: ARMEN REQ #: [id number] MELINA: 08/03/21 15:[address]: Cassandra Torres DEPT: Surgical Specimen RECD BY: Rachele Mccray ENTERED: 08/03/21 17:47 SP TYPE: Endo OTHR DR: Juice Astorga Tissues: 1 - ENDOCERVICAL BX/CURRETTE 2 - CERVICAL BIOPSY Procedures: GROSS AND MICRO LEVEL 4 Comments: [id number]
== END 2021-08-03 15:53 | disposition home or self-care (01) ==
LOC: LBN 15:52
PROVIDERS: PCP Nurse Practitioner Family; Visit Provider Obstetrics & Gynecology
DX: R87.610 Atypical squamous cells of undetermined significance on cytologic smear of cervix (ASC-US) (principal); R87.810 Cervical high risk human papillomavirus (HPV) DNA test positive
CPT/HCPCS: 88305

== ENCOUNTER → 2021-08-08 01:11 | Outpatient (CLI) | payer MEDICAID, SELFPAY ==
--- NOTE | 2021-08-08 09:26 | DI.MAMMO_ITS ---
Exam(s) MAMMO SCREEN CALL BACK UNI EXAM: MAMMO SCREEN CALL BACK UNI CLINICAL HISTORY: F/U ABNL MAMMO, INCREASED AREA OF NODULARITY UPPER OUTER QUADRANT LT BREAST TECHNIQUE: Spot compression CC and MLO views with tomographic imaging were performed. COMPARISON: Mammograms 2012 through 2019 FINDINGS: No suspicious masses or suspicious microcalcifications are seen. Previously questioned nodule is much less apparent on the additional views performed. An area of nod ularity was noted on prior exams and this appears unchanged. This likely represents intramammary lym ph node. IMPRESSION: BI-RADS Category 1, Negative Yearly screening mammography is recommended. Breast Density - Category B, scattered fibroglandular densities.
== END ==
PROVIDERS: PCP Nurse Practitioner Family; Visit Provider Nurse Practitioner Family
DX: Z12.31 Encounter for screening mammogram for malignant neoplasm of breast (principal); R92.8 Other abnormal and inconclusive findings on diagnostic imaging of breast; N60.82 Other benign mammary dysplasias of left breast
CPT/HCPCS: 77063; 77067